=== PATIENT | female | born 1945 | race Caucasian/White ===

== ENCOUNTER 2020-05-07 07:45 | Observation (INO) | payer MEDICARE, OTHER ==
[~2020-05-07] VITALS: Ht 160 cm; Wt 54.4 kg
[~2020-05-07 07:45] MED LIST: ACIPHEX20 MG; AMLODIPINE BESYLATE; ASPIR-LOW81 MG; ATORVASTATIN; FUROSEMIDE40 MG PO; GABAPENTIN100 MG PO; KLOR-CON 1010 MEQ; LEVOTHYROXINE; LISINOPRIL; METOPROLOL TART50 MG PO; NITROGLYCERIN0.4 MG SL
[2020-05-07] MEDS ORDERED: PANTOPRAZOLE 40 MG 10ML VIAL IV STA (07:48)
[2020-05-07] MEDS ORDERED: ASPIRIN 81 MG CHEW TAB PO STA (07:56)
[2020-05-07] MEDS ORDERED: ONDANSETRON HCL INJ 2MG/ML 2ML 2 MG/ML VIAL IV STA (07:58)
--- OUTSIDE RECORDS SUMMARY | 2020-05-07 07:58 | XMS REPORT | Continuity of Care Document ---
Author Author [facility] t Organization [facility] Address [address] [place] [address] Phone Unavailable Care Team Providers Care Software Project Manager Name Role Phone Cheng JO, Blake Arzolah PCP Radha JO, Bebeto Zurita Attphys Andrzej JO, Perez Silvestre Attphys [phone] Pranav STEAM TABLE ASSOCIATE, Abdias Attphys Unavailable Leslie STEAM TABLE ASSOCIATE, Codi Attphys Unavailable Payers Payer Name Policy Type Policy Number Effective Date Expiration Date S roscoe MEDICAREMEDICARE PART A [place] B[place]xxx2008[place] 2008 00:[place]:00 [place] [employer] [employer] OF [place] [place]xxxxxxxx1-PresentCommercial xxxxxxxx 2018 00:00:00 [place] Yarsani Problems Condition Name Condition Details Condition Category Status Onset Date Resolution Date Last Treatment Date Treating Clinician Comments Source Mixed stress and urge urinary incontinence Mixed stres s and urge urinary incontinence Disease Active 2019-10-10 00:00:00 [place] [facility] History of Myocardial infarct History of Myocardial infarct Prob shanna HL7.CCDAR2 Resolved [facility] Heart disease Heart disease Problem HL7.CCDAR2 Active [facility] Generalized osteoarthritis of hand Generalized osteoarthriti s of hand Problem HL7.CCDAR2 Active [facility] Allergies, Adverse Reactions, Alerts Allergy Name Allergy Type Status Severity Reaction(s) Onset Date Inacti ve Date Treating Clinician Comments Source Sulfa (Sulfonamide Antibiotics) Propensity to adverse reactions to drug Active Rash, Other (See Comments) 2019-10-10 00:00:00 FEVER Jordan Decker Family History Family Member Diagnosis Comments Start Date Stop Date Source Mother Family history of Heart disease [facility] Sister Family history of Rheumatoid arthritis [facility] Sister Family history of Arthritis [facility] Natural father No Known Problems Mi Decker Natural mother Heart disease Jordan Decker Social History Social Habit Start Date Stop Date Quantity Comments Source Sex Assigned At Mi Decker Alcohol intake 2019-10-10 00:00:00 2019-10-10 00:00:00 Current drinker of alcohol (finding) Jordan Decker Alcohol Comment 2019-07-22 00:00:00 2019-07-22 00:00:00 social Jordan Decker Smoking Status Start Date Stop Date Source Never smoker Jordan quinones Medications Ordered Medication Name Filled Medication Name Start Date Stop Da te Current Medication? Ordering Clinician Indication Dosage Frequency Signature (SIG) Comments Components Source RABEprazole (ACIPHEX) 20 mg EC tablet 2019-11-18 08:01:33 Y es 20mg QD Take 20 mg by mouth daily. Jordan pro traMADol (ULTRAM) 50 mg tablet 2019-09-25 00:00:00 6 23:59:00 No acute pain 50mg Q6H Take 1 tablet (50 mg total) by mouth every 6 (six) hours as needed for moderate pain for up to 7 days .Acute Pain. Jordan Decker oxyCODone (ROXICODONE) 5 MG immediate release tablet 2019-09-25 00:00:00 2019-09-25 00:00:00 No acute pain 5mg Q4H Take 1 tablet (5 mg total) by mouth every 4 (four) hours as needed for moderate pain for up to 30 days .Acute Pain. Max Daily Amount: 30 mg Jordan quinones nitrofurantoin, macrocrystal-monohydrate, (MACROBID) 100 MG capsule 2019-07-22 00:00:00 2019-07-27 23:59:00 No 100mg Q.5D Take 1 capsule (100 mg total) by mouth 2 (two) times a day for 5 days. Anthony Decker lisinopril-hydrochlorothiazide (PRINZIDE,ZESTORETIC) 10-12.5 mg per tablet 2019-07-04 00:00:00 Yes 1{tbl} QD Take 1 tablet by m outh daily. Jordan Decker carvedilol (COREG) 12.5 MG tablet 2019-07-01 00:00:00 Yes 12.5mg Q.5D Take 12.5 mg by mouth 2 (two) times a day. Jordan Decker atorvastatin (LIPITOR) 40 MG tablet 2019-06-16 00:00:00 Yes 40mg QD Take 40 mg by mouth daily. Jordan Decker amLODIPine (NORVASC) 5 mg tablet 2019-06-16 00:00:00 Yes 5mg QD Take 5 mg by mouth daily. Jordan Decker diazePAM (VALIUM) 5 MG tablet 2019-06-05 00:00:00 Yes TAKE 1 TABLET BY MOUTH NIGHT PRIOR TO PROCEDURE AND TAKE 1 TABLET IN THE MORNING OF PROCEDURE UPON ARRIVAL Jordan Decker levothyroxine (SYNTHROID, LEVOXYL) 50 mcg tablet 2019-05-28 00:00:00 Yes TAKE 1 TABLET BY MOUTH ONCE DAILY FOR 90 DAYS Jordan Decker Lisinopril 20 MG Oral Tablet Lisinopril 20 MG Oral Tablet 00:00:00 Yes QD TAKE 1 TABLET DAILY DIRECTED. [facility] Lasix 40 MG Oral Tablet Lasix 40 MG Oral Tablet 2014-12-03 00:00:00 Yes 1 QD TAKE 1 TABLET DAILY. [facility] Aciphex 20 MG Oral Tablet Delayed Release Aciphex 20 M G Oral Tablet Delayed Release 2014-12-03 00:00:00 Yes 1 QD TAKE 1 TABLET DA PAUL. [facility] Metoprolol Succinate ER 25 MG Oral Tablet Extended Rel ease 24 Hour Metoprolol Succinate ER 25 MG Oral Tablet Extended Release 24 Hour 2014-12-03 00:00:00 Yes TAKE 1 TABLET BY MOUTH TWICE DAILY [facility] Crestor 20 MG Oral Tablet Crestor 20 MG Oral Tablet 2014-12-03 00:00:0 0 Yes 1 QD TAKE 1 TABLET DAILY. [facility] Klor-Con 10 10 MEQ Oral Tablet Extended Release Klor-C on 10 10 MEQ Oral Tablet Extended Release 2014-12-03 00:00:00 Yes TAKE 1 TABLET EVERY OTHER DAY. [facility] Vitamin C 1000 MG Oral Tablet Vitamin C 1000 MG Oral Tablet 2014 00:00:00 Yes 1 QD TAKE 1 TABLET DAILY. [facility] Biotin 5000 MCG Oral Capsule Biotin 5000 MCG Oral Capsule 2015-01-0 7 00:00:00 Yes 1 QD TAKE 1 CAPSULE DAILY. Un [facility] Aspirin 81 MG TABS Aspirin 81 MG TABS 2014-12-03 00:00:00 Yes 1 QD TAKE 1 TABLET DAILY. [facility] Voltaren 1 % Transdermal Gel Voltaren 1 % Transdermal Gel 00:00:00 Yes KATT GONZALEZ M.D. Apply 1 inch to affected area twice daily as needed for pain. [facility] Vital Signs Vital Name Observation Time Observation Value Comments Source Systolic blood pressure 2019-11-18 08:00:00 158 mm[Hg] Jordan Decker Diastolic blood pressure 2019-11-18 08:00:00 90 mm[Hg] Jordan Decker Body height 2019-11-18 08:00:00 160 cm Jordan Decker Body weight 2019-11-18 08:00:00 60.782 kg Jordan Decker BMI 2019-11-18 08:00:00 23.74 kg/m2 Jordna Decker Heart rate 2019-10-10 09:37:00 59 /min Jordan Decker Respiratory rate 2019-10-10 09:37:00 16 /min Kelly Decker Oxygen saturation in Arterial blood by Pulse oximetry 2018-11 09:37:00 98 /min Jordan Decker Body temperature 2019-10-10 09:18:00 36.61 Sweetie Hous jonny Decker Procedures Procedure Date / Time Performed Performing Clinician [id number] 2019-11-18 08:06:00 Yudith Garcia DE AN ELECTIVE ENDOTRACHEAL AIRWAY 2019-10-10 07:34:21 Nathan Mooney CYSTOSCOPY 2019-10-10 07:15:00 Yudith Garcia Sc leandro COLPORRHAPHY, COMBINED ANTEROPOSTERIOR, WITH ENTEROCEL E REPAIR 2019-10-10 07:15:00 Yudith Garcia URETHROPEXY, USING TRANSVAGINAL TAPE 2019-10-10 07:15:00 Stacy Garcia XR CHEST 2 VW 2019-09-26 11:05:00 Yudith Garcia HC COMPLETE BLD COUNT W/AUTO DIFF 2019-09-26 10:40:00 King Garcia BASIC METABOLIC PANEL 2019-09-26 10:40:00 [place], Yudith Mendoza ton Yarsani ESTIMATED GFR 2019-09-26 10:40:00 [place] [facility] ECG 12-LEAD 2019-09-26 10:39:44 Radha, Yudith [facility] POC URINALYSIS DIPSTICK 2019-09-25 10:58:00 RadhaYudith URODYNAMICS 2019-09-25 00:00:00 RadhaYudith Sc thodist POC URINALYSIS DIPSTICK 2019-07-22 13:59:00 [place] URINE CULTURE 2019-07-22 13:58:00 [place] [facility] [id number] 2019-07-22 13:58:00 [place] [facility] History of Back Surgery [facility] Plan of Care Planned Activity Planned Date Details Comments Source Future Scheduled Test 2020-06-27 00:00:00 INFLUENZA VACCINE [code = INFLUENZA VACCINE] [facility] Future Scheduled Test 2008 00:00:00 65+ PNEUMOCOCCAL V ACCINE (1 of 2 - PCV13) [code = 65+ PNEUMOCOCCAL VACCINE (1 of 2 - PCV13)] [facility] Future Scheduled Test 1993 00:00:00 COLONOSCOPY SCREEN ING [code = COLONOSCOPY SCREENING] [facility] Scheduled Test 1993 00:00:00 SHINGLES VACCINES (#1) [code = SHINGLES VACCINES (#1)] [facility] Results Test Description Test Time Test Comments Results Result Comments Source POC BLADDER SCAN/PVR 2019-11-18 08:06:00 Test Item Total volume, urine (test code = 2338) 0 ml Ortega [id number] 07:34:21Era Mooney 10/10/2019 7:35 AMAirwayDate/Time: 10/10/2019 7:23 AMPerformed by: Era MooneyeAuthorized by: Konrad Donnelly MD Location: ORUrgency: ElectiveDifficult Airway: No Anesthesiologist: Konrad Donnelly MDResident/AIRCRAFT INSTRUMENT ENGINEER/AA: Era MooneyePerformed by: resident/AIRCRAFT INSTRUMENT ENGINEER/AAPreoxygenated with 100% O2: Yes Mask Ventilation: Easy mask (e asy BMV w/ OA)Final Airway Type: Endotracheal airwayFinal Endotracheal Airway: ETTCuffed: Yes Technique Used: Direct laryngoscopyDevices/Methods Used in Cynthia cement: Intubating styletInsertion Site: OralBlade Type: MacintoshLaryngoscop e Blade/Videolaryngoscope Blade Size: 3ETT Size (mm): 7.0Cuff at minimum occlu josef pressure: Yes Measured from: LipsETT to Lips (cm): 21Placement Verified by: CO2 detection, direct visualization and equal breath sounds Laryngoscopic v iew: Grade I - full view of glottisRapid Sequence Induction (RSI): No Modified RSI: No Number of Attempts at Approach: 1[facility] metabolic [id number] 12:08:48* Test Item Value Reference Range Interpretation Comments Sodium (test code = 2951-2) 145 135- 148 mEq/L Potassium (test code = 2823-3) 4.3 3.5- 5.0 mEq/L Chloride (test code = 2075-0) 104 98- 112 mEq/L CO2 (test code = 8-9) 28 24- 31 mEq/L Anion gap (test code = 11769-7) 13@ANIO 7- 15 mEq/L BUN (test code = 3094-0) 19 mg/dL 8-23 Creatinine (test code = 2160-0) 0.90 mg/dL 0.5-0.9 Glucose (test code = 2345-7) 107 mg/dL 65-99 H Calcium (test code = 47180-7) 9.4 mg/dL 8.8-10.2 Lab Interpretation (test code = 98129-4) Abnormal [facility] Methodist[facility]ated [id number] 12:08:48* Test Item Value Reference Range Interpretation Comments Estimated GFR (test code = 5488) 62 mL/min/1.73 m2 Catergory Units InterpretationG1 >=90 Normal or highG2 60-89 Mildly brnccmaehC4f 45-59 Mildly to moderately nxjmrxbnmX7g 30-44 Moderately to severely decreasedG4 15-29 Severely decreasedG5 <15 Kidney failureThe eGFR was calculated using the Chronic Kidney Disease Epidemiology Collaboration (CKD-EPI) equation. Interpretation is based on recommendations of the National Kidney Foundation-Kidney Disease Outcomes Quality Initiative (NKF-KDOQI) published in 2014. [facility] Methodist[facility]G 12 [id number] 11:54:05* Test Item Value Reference Range Interpretation Comments Ventricular rate (test code = 253) 64 Atrial rate (test code = 255) 64 DE interval (test code = 266) 158 QRSD interval (test code = 260) 82 QT interval (test code = 264) 426 QTC interval (test code = 265) 439 P axis 1 (test code = 267) 32 QRS axis 1 (test code = 268) 36 T wave axis (test code = 270) 43 EKG impression (test code = 273) Normal sinus rhythm-N ormal ECG-No previous ECGs available- [facility] with platelet and [id number] 11:53:48* Test Item Value Reference Range Interpretation Comments WBC (test code = 65161-6) 6.06 4.50- 11.00 k/uL RBC (test code = 19607-3) 4.21 m/uL 4.2-5.5 HGB (test code = 718-7) 11.9 g/dL 12-16 L HCT (test code = 4544-3) 37.8 % 37-47 MCV (test code = 787-2) 89.8 fL 82-100 MCH (test code = 785-6) 28.3 pg 27-34 MCHC (test code = 786-4) 31.5 g/dL 31-37 RDW - SD (test code = 39130-7) 47.0 fL 37-55 MPV (test code = 53838-8) 10.9 fL 8.8-13.2 Platelet count (test code = 87201-0) 199 150- 400 k/uL Nucleated RBC (test code = 39886-5) 0.00 /100 WBC Neutrophils (test code = 10637-8) 59.4 % 39-69 Lymphocytes (test code = 93163-2) 29.5 % 25-45 Monocytes (test code = 14417-2) 9.2 % 0-10 Eosinophils (test code = 04492-9) 0.8 % 0-5 Basophils (test code = 10353-6) 0.8 % 0-1 Lab Interpretation (test code = 17318-3) Abnormal [facility] Chest 2 [id number] 11:09:02Hm Interface, Radiology Results Incoming - 09/26/2019 11:12 AM CDTTWO VIEW CHEST, 09/26/2019Clinical history: Preoperative testingTechnique: PA and lateral views chest.Comparison: NoneDISCUSSION:The lungs are clear and symmetrically inflated. No pleural effusions. Cardiac size and mediastinal contour are normal. Pulmonary vasculature is normal. The skeleton is grossly intact. Mild degenerative disc disease. Mild abdominal aortic atherosclerosis.IMPRESSION:No acute abnormality. [facility] urinalysis [id number] 10:58:00* Test Item Value Reference Range Interpretation Comments Color urine, POC (test code = 7008580) Yellow Clarity urine, POC (test code = 9562987) Clear Glucose urine, POC (test code = 4212149) Negative Negative Bilirubin urine, POC (test code = 1980990) Negative Negative Ketones urine, POC (test code = 2360493) Negative Negative Specific gravity urine, POC (test code = 8374543) </=1.005 1.00 5-1.030 Blood urine, POC (test code = 0226258) Negative Negative pH urine, POC (test code = 9677166) 5.0 5.0, 5.5, 6. 0, 6.5, 7.0, 7.5, 8.0, 8.5 Protein urine, POC (test code = 6390533) Negative Negative Urobilinogen urine, POC (test code = 6831538) <2.0 <2.0 Nitrite urine, POC (test code = 6326562) Negative Negative Leukocyte esterase urine, POC (test code = 3921425) Negative Ne gative [facility]
--- OUTSIDE RECORDS SUMMARY | 2020-05-07 07:58 | XMS REPORT | Summary of Care ---
Author Author [facility] Address [address] [place] [address] Phone Unavailable Care Team Providers Care Vending Service Technician Name Role Phone KATT GONZALEZ M.D. Unavailable Unavailable Unavailable Unavailable Functional Status Name Dates Details Functional status health issues are not documented Status: Name Dates Details Cognitive status health issues are not d ocumented Status: Problems Name Dates Details Heart disease (429.9, I51.9) Status: Active Generalized osteoarthritis of hand (715. 04, M15.9) Status: Active Medications Name Dates Details Lisinopril 20 MG Oral Tablet TAKE 1 TABLET DAILY DIRECTED. * Start : 03-Dec-2014 Active Lasix 40 MG Oral Tablet TAKE 1 TABLET DAILY. * Refills: 0 * Start : 03-Dec-2014 Active Aciphex 20 MG Oral Tablet Delayed Release TAKE 1 TABLET DAILY. * Refills: 0 * Start : 03-Dec-2014 Active Metoprolol Succinate ER 25 MG Oral Tablet Extended Release 24 Hour TAKE 1 TABLET BY MOUTH TWICE DAILY * Quantity: 60 Refills: 1 * Start : 03-Dec-2014 Active Crestor 20 MG Oral Tablet TAKE 1 TABLET DAILY. * Refills: 0 * Start : 03-Dec-2014 Active Klor-Con 10 10 MEQ Oral Tablet Extended Release TAKE 1 TABLET EVERY OTHER DAY. * Refills: 0 * Start : 03-Dec-2014 Active Vitamin C 1000 MG Oral Tablet TAKE 1 TABLET DAILY. * Refills: 0 * Start : 03-Dec-2014 Active Biotin 5000 MCG Oral Capsule TAKE 1 CAPSULE DAILY. * Refills: 0 * Start : 03-Dec-2014 Active Aspirin 81 MG TABS TAKE 1 TABLET DAILY. * Refills: 0 * Start : 03-Dec-2014 Active Voltaren 1 % Transdermal Gel Apply 1 inch to affected area twice daily as needed for pain. * Quantity: 1 Refills: 5 KATT GONZALEZ M.D. * Start : 03-Dec-2014 Active 100 GM Tube (3 Tubes) Allergies and Adverse Reactions Name Dates Details Sulfa Drugs Cross Reactors (Allergy) Status: Active Past Medical History Name Dates Details History of Myocardial infarct (410.90, I 21.9) Status: Resolved Procedures Procedure Dates Details History of Back Surgery Completed Immunization Name Dates Details Immunizations not documented Family History Name Dates Details Family history of Heart disease (429.9, I51.9) Status: Active Name Dates Details Family history of Rheumatoid arthritis ( 714.0, M06.9) Status: Active Family history of Arthritis (716.90, M19 .90) Status: Active Social History Name Dates Details - Status: Name Dates Details Never smoker Vital Signs Date Test Result Details No Known Vitals to report Results Date Description Value Details Results not documented Plan of Care Name Dates Details Planned Observations Planned Goals not documented Instructions Name Dates Details Instructions not documented Encounters No Encounter data documented Encounter Diagnosis: Problem not documented On: 16-May-2018
--- OUTSIDE RECORDS SUMMARY | 2020-05-07 07:58 | XMS REPORT | Clinical Summary ---
Author Author [facility] Address Unknown Phone Unavailable Care Team Providers Care Safety Administrator Name Role Phone Julio Anand MD PCP Allergies Comments Active Allergy Reactions Severity Noted Date FEVER Sulfa (Sulfonamide Rash, Other Low 10/10/2019 Antibiotics) (See Comments) Medications End Date Status Medication Sig Dispensed Refills Start Date Active lisinopril-hydrochlorothi Take 1 tablet 3 azide by mouth 9 (PRINZIDE,ZESTORETIC) daily. 10-12.5 mg per tablet Active levothyroxine (SYNTHROID, TAKE 1 TABLET 3 LEVOXYL) 50 mcg tablet BY MOUTH ONCE 9 DAILY FOR 90 DAYS Active diazePAM (VALIUM) 5 MG TAKE 1 TABLET 0 06/05/ 01 tablet BY MOUTH 9 NIGHT PRIOR TO PROCEDURE AND TAKE 1 TABLET IN THE MORNING OF PROCEDURE UPON ARRIVAL Active carvedilol (COREG) 12.5 Take 12.5 mg 3 MG tablet by mouth 2 9 (two) times a day. Active atorvastatin (LIPITOR) 40 Take 40 mg by 3 05/28 MG tablet mouth daily. 9 Active amLODIPine (NORVASC) 5 mg Take 5 mg by 3 05/28 tablet mouth daily. 9 Active RABEprazole (ACIPHEX) 20 Take 20 mg by 0 mg EC tablet mouth daily. 07/27/2019 nitrofurantoin, Take 1 10 capsule 0 macrocrystal-monohydrate, capsule (100 9 (MACROBID) 100 MG capsule mg total) by mouth 2 (two) times a day for 5 days. 09/25/2019 Discontinued (Availability) oxyCODone (ROXICODONE) 5 Take 1 tablet 10 tablet 0 MG immediate release (5 mg total) 9 tabletIndications: acute by mouth pain every 4 (four) hours as needed for moderate pain for up to 30 days .Acute Pain. Max Daily Amount: 30 mg 10/02/2019 traMADol (ULTRAM) 50 mg Take 1 tablet 20 tablet 0 tabletIndications: acute (50 mg total) 9 pain by mouth every 6 (six) hours as needed for moderate pain for up to 7 days .Acute Pain. Active Problems Problem Noted Date Mixed stress and urge urinary incontinence 9 Encounters Care Team Description Date Type Specialty Yudith Garcia MD Post-operative state (Primary Dx) 11/18/2019 Office Visit Urogynecology Konrad Donnelly MD 10/10/2019 Anesthesia General Surgery Event Yudith Garcia MD CYSTOSCOPY 10/10/2019 Surgery General Surgery Yudith Garcia MD 10/10/2019 [facility] General Surgery Encounter Yudith Garcia MD 09/26/2019 Hospital Radiology Encounter Yudith Garcia MD Preop testing (Primary Dx) 09/26/2019 Pre-Admit Pre-Admission Testi ng Testing Appointment Yudith Garcia MD Mixed stress and urge urinary incontinen ce (Primary Dx); Bladder prolapse, female, acquired; Postmenopausal atrophic vaginitis 09/25/2019 Procedure visit Urogynecology Abdias Rock LVN 09/25/2019 Refill Urogynecology Abdias [facility] Post-op pain (Primary Dx) 09/25/2019 Orders Only Urogynecology Abdias [facility] LVN 09/25/2019 Refill Urogynecology Yudith Garcia MD 09/25/2019 Telephone Gynecologic Oncolog y Yudith Garcia MD 08/28/2019 Telephone Obstetrics and Gyne cology Codi Nelson LVN 07/23/2019 Telephone Urogynecology Yudith Garcia MD Bladder prolapse, female, acquired (Prim jen Dx); Mixed stress and urge urinary incontinence; Postmenopausal atrophic vaginitis; Incontinence of feces, unspecified fecal incontinence type; Acute cystitis without hematuria 07/22/2019 Office Visit Urogynecology after 05/07/2019 Family History Medical History Relation Name Comments No Known Problems Father Heart disease Mother Relation Name Status Comments Father (Age 37) Mother (Age 43) Social History Date Tobacco Use Types Packs/Day Years Used Never Smoker Smokeless Tobacco: Never Used Drinks/Week oz/Week Comments Alcohol Use social Yes Sex Assigned at Date Recorded Not on file Industry Job Start Date Occupation Not on file Not on file Not on file Travel End Travel History Travel Start No recent travel history available. Last Filed Vital Signs Reading Time Taken Comments Vital Sign 158/90 11/18/2019 8:00 AM SENIOR ACTUARIAL ANALYST Blood Pressure 59 10/10/2019 9:37 AM SENIOR ACTUARIAL ANALYST Pulse 36.6 C (97.9 F) 10/10/2019 9:18 AM SENIOR ACTUARIAL ANALYST Temperature 16 10/10/2019 9:37 AM SENIOR ACTUARIAL ANALYST Respiratory Rate 98% 10/10/2019 9:37 AM SENIOR ACTUARIAL ANALYST Oxygen Saturation - - Inhaled Oxygen Concentration 60.8 kg (134 lb) 11/18/2019 8:00 AM SENIOR ACTUARIAL ANALYST Weight 160 cm (5' 3") 11/18/2019 8:00 AM SENIOR ACTUARIAL ANALYST Height 23.74 11/18/2019 8:00 AM SENIOR ACTUARIAL ANALYST Body Mass Index Plan of Treatment Health Maintenance Due Date Last Done Comments COLONOSCOPY SCREENING 1993 SHINGLES VACCINES (#1) 1993 65+ PNEUMOCOCCAL VACCINE 2008 (1 of 2 - PCV13) INFLUENZA VACCINE 06/27/2020 Implants Device Identifier Shelf Expiration Date Model / Serial / L ot Implanted Type Area Manufactur er 02/25/2020 TVTRL / / [id number] System Contnc Rtrpbc Gynecare Tvt Urological N/A: Bladder GYNECARE Exact - [id number] Implants Implanted: Qty: 1 on 10/10/2019 by or Yudith Quinn MD at [facility] Procedures Comments Procedure Name Priority Date/Time Associated Diag nosis [id number] Routine 11/18/2019 Post-operative state 8:06 AM SENIOR ACTUARIAL ANALYST VA AN ELECTIVE Routine 10/10/2019 ENDOTRACHEAL AIRWAY 7:34 AM SENIOR ACTUARIAL ANALYST URETHROPEXY, USING 10/10/2019 CYSTOCELE, STRESS URINARY TRANSVAGINAL TAPE 7:15 AM SENIOR ACTUARIAL ANALYST INCONTINENCE N81.11, N39.3 COLPORRHAPHY, COMBINED 10/10/2019 CYSTOCELE, STR ESS URINARY ANTEROPOSTERIOR, WITH 7:15 AM SENIOR ACTUARIAL ANALYST INCONTINENCE ENTEROCELE REPAIR N81.11, N39.3 CYSTOSCOPY 10/10/2019 CYSTOCELE, STRESS U RINARY 7:15 AM SENIOR ACTUARIAL ANALYST INCONTINENCE N81.11, N39.3 XR CHEST 2 VW Routine 09/26/2019 Preop testing 11:05 AM CDT ESTIMATED GFR Routine 09/26/2019 10:40 AM CDT BASIC METABOLIC PANEL Routine 09/26/2019 Preop te sting 10:40 AM CDT HC COMPLETE BLD COUNT Routine 09/26/2019 Preop te sting W/AUTO DIFF 10:40 AM CDT ECG 12-LEAD Routine 09/26/2019 Preop testing 10:39 AM CDT POC URINALYSIS DIPSTICK Routine 09/25/2019 Mixed stress and urge 10:58 AM CDT urinary incontinence Bladder prolapse, female, acquired URODYNAMICS Routine 09/25/2019 POC URINALYSIS DIPSTICK Routine 07/22/2019 Bladde r prolapse, female, 1:59 PM CDT acquired Mixed stress and urge urinary incontinence [id number] Routine 07/22/2019 Bladder prolaps e, female, 1:58 PM CDT acquired Mixed stress and urge urinary incontinence URINE CULTURE Routine 07/22/2019 Bladder prolaps e, female, 1:58 PM CDT acquired Mixed stress and urge urinary incontinence after 05/07/2019 Results * POC BLADDER SCAN/PVR (11/18/2019 8:06 AM SENIOR ACTUARIAL ANALYST) Only the most recent of 2 results within the time period is included. Total volume, 0 ml urine Specimen Urine * Airway (10/10/2019 7:34 AM SENIOR ACTUARIAL ANALYST) Narrative Performed At [facility] 10/10/2019 7:35 AM Airway Date/Time: 10/10/2019 7:23 AM Performed by: [facility] Authorized by: Konrad Donnelly MD Location: OR Urgency: Elective Difficult Airway: No Anesthesiologist: Mark Donnelly MD Resident/SECRETARY TO THE VICE PRESIDENT/AA: [facility] Performed by: resident/SECRETARY TO THE VICE PRESIDENT/AA Preoxygenated with 100% O2: Yes Mask Ventilation: Easy mask (easy BMV w/ OA) Final Airway Type: Endotracheal airwa y Final Endotracheal Airway: ETT Cuffed: Yes Technique Used: Direct laryngoscopy Devices/Methods Used in Placement: In tubating stylet Insertion Site: Oral Blade Type: Niall Laryngoscope Blade/Videolaryngoscope Bl olivia Size: 3 ETT Size (mm): 7.0 Cuff at minimum occlusion pressure: Yes Measured from: Lips ETT to Lips (cm): 21 Placement Verified by: CO2 detection, d irect visualization and equal breath sounds Laryngoscopic view: Grade I - full vi ew of glottis Rapid Sequence Induction (RSI): No Modified RSI: No Number of Attempts at Approach: 1 * XR Chest 2 Vw (09/26/2019 11:05 AM CDT) Specimen Narrative Performed At TWO VIEW CHEST, 09/26/2019 [facility] Clinical history: Preoperative testin g Technique: PA and lateral views chest. Comparison: None DISCUSSION: The lungs are clear and symmetrically i nflated. No pleural effusions. Cardiac size and mediastinal contour are normal . Pulmonary vasculature is normal. The skeleton is grossly intact. Mild degene rative disc disease. Mild abdominal aortic atherosclerosis. IMPRESSION: No acute abnormality. Procedure Note Interface, Radiology Results Incoming - 09/26/2019 11:12 AM CDT TWO VIEW CHEST, 09/26/2019 Clinical history: Preoperative testing Technique: PA and lateral views chest. Comparison: None DISCUSSION: The lungs are clear and symmetrically inflated. No pleural effusions. Cardiac size and mediastinal contour are normal. Pulmonary vasculature is normal. The skeleton is grossly intact. Mild degenerative disc disease. Mild abdominal aortic atherosclerosis. IMPRESSION: No acute abnormality. Performing Organization Address City/State/Zipcode Ph one Number [facility] [address] [place] [address] * Estimated GFR (09/26/2019 10:40 AM CDT) [facility] Estimated GFR 62 mL/min/1.73 m2 [place] Comment: [facility] Interpretation G1 >=90 Normal or high G2 60-89 Mildly decreased G3a 45-59 Mildly to moderately decreased G3b 30-44 Moderately to severely decreased G4 15-29 Severely decreased G5 <15 Kidney failure The eGFR was calculated using the Chronic Kidney Disease Epidemiology Collaboration (CKD-EPI) equation. Interpretation is based on recommendations of the National Kidney Foundation-Kidney Disease Outcomes Quality Initiative (NKF-KDOQI) published in 2014. Specimen Plasma specimen Performing Organization Address City/[facility]/[place] Ph one Number [facility] DEPARTMENT OF [id number] [place] [address] [place], [place] [address] PATHOLOGY AND GENOMIC MEDICINE [facility] [id number] [place] [address] [place] [address] [facility] * CBC with platelet and differential (09/26/2019 10:40 AM CDT) WBC 6.06 4.50 - 11.00 k/uL [facility] RBC 4.21 4.20 - 5.50 m/uL [facility] HGB 11.9 (L) 12.0 - 16.0 g/dL [facility] HCT 37.8 37.0 - 47.0 % [facility] MCV 89.8 82.0 - 100.0 fL [facility] MCH 28.3 27.0 - 34.0 pg [facility] MCHC 31.5 31.0 - 37.0 g/dL [facility] RDW - SD 47.0 37.0 - 55.0 fL [facility] MPV 10.9 8.8 - 13.2 fL [facility] Platelet count 199 150 - 400 k/uL [facility] Nucleated RBC 0.00 /100 WBC [facility] Neutrophils 59.4 39.0 - 69.0 % [facility] Lymphocytes 29.5 25.0 - 45.0 % [facility] Monocytes 9.2 0.0 - 10.0 % [facility] Eosinophils 0.8 0.0 - 5.0 % [facility] Basophils 0.8 0.0 - 1.0 % [facility] Specimen Blood Performing Organization Address City/[facility] Ph one Number [facility] [place] [place] [id number] [place] [address] [place], [place] [address] PATHOLOGY AND GENOMIC MEDICINE [facility] [id number] [place] [address] * Basic metabolic panel (09/26/2019 10:40 AM CDT) Sodium 145 135 - 148 mEq/L [facility] Potassium 4.3 3.5 - 5.0 mEq/L [facility] Chloride 104 98 - 112 mEq/L [facility] CO2 28 24 - 31 mEq/L [facility] Anion gap 13@ANIO 7 - 15 mEq/L [facility] BUN 19 8 - 23 mg/dL [facility] Creatinine 0.90 0.50 - 0.90 mg/dL [facility] Glucose 107 (H) 65 - 99 mg/dL [facility] Calcium 9.4 8.8 - 10.2 mg/dL [facility] Specimen Plasma specimen Performing Organization Address City/[facility] Ph one Number [facility] DEPARTMENT [place] [id number] [place] [address] [place] [phone] PATHOLOGY AND GENOMIC MEDICINE [facility] [id number] [place] [address] [place] [phone] [facility] * ECG 12 lead (09/26/2019 10:39 AM CDT) Ventricular 64 [facility] rate Atrial rate 64 [facility] VA interval 158 [facility] QRSD interval 82 [facility] QT interval 426 [facility] QTC interval 439 [facility] P axis 1 32 [facility] QRS axis 1 36 [facility] T wave axis 43 [facility] EKG impression Normal sinus rhythm-Normal [facility] MUSE ECG-No previous ECGs available- Specimen Narrative Performed At This result has an attachment that is n ot available. Performing Organization Address City/[facility] Ph one Number [facility] [address] [place] [address] * POC urinalysis dipstick (09/25/2019 10:58 AM CDT) Only the most recent of 2 results within the time period is included. Color urine, Yellow POC Clarity urine, Clear POC Glucose urine, Negative Negative POC Bilirubin Negative Negative urine, POC Ketones urine, Negative Negative POC Specific </=1.005 1.005 - 1.030 gravity urine, POC Blood urine, Negative Negative POC pH urine, POC 5.0 5.0, 5.5, 6.0, 6.5, 7.0, 7.5, 8.0, 8.5 Protein urine, Negative Negative POC Urobilinogen <2.0 <2.0 urine, POC Nitrite urine, Negative Negative POC Leukocyte Negative Negative esterase urine, POC Specimen Urine * Urodynamics (09/25/2019) Narrative Performed At This result has an attachment that is n ot available. * Urine culture (07/22/2019 1:58 PM CDT) Urine culture Escherichia coli [facility] Greater than 100,000 colony forming units per mL (A) Comment: Cefazolin <=4 ug/mL Cefazolin with an HENRY <=16 predicts susceptibility to the oral agents cefaclor, cefdinir, cefpodoxime, cefprozil, cefuroxime, cephalexin, and loracarbef when used for therapy of uncomplicated urinary tract infections due to E. coli, Klebsiella pneumoniae, and Proteus mirabilis. Specimen Urine Narrative Performed At Performed at: [facility] [address] [id number] [employer] Supervisor: Jonas Childs MD, Phone: [phone] Antibiotic Method Susceptibility Organism Amoxicillin/Clavulanate S ug/mL: Susceptible Escherichia coli Ampicillin S ug/mL: Susceptible Escherichia coli Cefepime S ug/mL: Susceptible Escherichia coli Ceftriaxone S ug/mL: Susceptible Escherichia coli Cefuroxime S ug/mL: Susceptible Escherichia coli Ciprofloxacin S ug/mL: Susceptible Escherichia coli Ertapenem S ug/mL: Susceptible Escherichia coli Gentamicin S ug/mL: Susceptible Escherichia coli Imipenem S ug/mL: Susceptible Escherichia coli Levofloxacin S ug/mL: Susceptible Escherichia coli Meropenem S ug/mL: Susceptible Escherichia coli Nitrofurantoin S ug/mL: Susceptible Escherichia coli Piperacillin/Tazobactam S ug/mL: Susceptible Escherichia coli Tetracycline S ug/mL: Susceptible Escherichia coli Tobramycin S ug/mL: Susceptible Escherichia coli Trimethoprim/Sulfamethoxazole S ug/mL: Susceptible Escherichia coli Comment: Performed at: [address] [place] [id number] Human Resources Supervisor: Jonas Childs MD, Phone: [phone] Performing Organization Address City/State/Zipcode Ph one Number [facility] after 05/07/2019 Insurance Type Payer Benefit Subscriber ID Effective Phone Address Plan / Dates Group Medicare MEDICARE MEDICARE xxxxxxxxxxx 2008-P JORDAN, PART A AND resent [place] B Commercial [employer] [place] OF xxxxxxxx 2018-P KELVIN schwab Advance Directives For more information, please contact: [phone] Patient Nc Machinist Explanation Type Date Recorded Advance Directives, 09/26/2019 9:37 AM Living Will and Medical Power of Delinquent Notice Machine Operator
[2020-05-07] MEDS ORDERED: NITROGLYCERIN 2% OINT 1 GM PKT TOP ONE (08:00)
[2020-05-07] MEDS ORDERED: LISINOPRIL-HCT1 EAC2 PO (08:00)
[2020-05-07] MEDS ORDERED: VITAMIN C500 M6 PO (08:00)
[2020-05-07] MEDS ORDERED: AMLODIPINE BESYL5 MG PO (08:00)
[2020-05-07] MEDS ORDERED: CARVEDILOL12.5 MG PO (08:00)
[2020-05-07] MEDS ORDERED: LEVOTHYROXINE50 MCG PO (08:00)
[2020-05-07] MEDS ORDERED: SODIUM CHLORIDE 0.9% 500ML 500 ML IV ONE (08:00)
[2020-05-07] MEDS ORDERED: BIOTIN5 M1 PO (08:00)
[2020-05-07] MEDS ORDERED: ATORVASTATIN CA20 MG PO (08:00)
[2020-05-07 08:28] LABS: BASOPHILS % 0.5 % (0.0-1.0); EOSINOPHILS % 0.4 % (0.0-6.0); HEMATOCRIT 36.1 % (34.2-44.1); HEMOGLOBIN 11.6 g/dL (12.0-16.0); LYMPHOCYTES # (AUTO) 1.3 (1.0-3.2); LYMPHOCYTES % 15.9 % (18.0-39.1); MEAN CORPUSCULAR HEMOGLOBIN 28.9 pg (28-32); MEAN CORPUSCULAR HGB CONC 32.1 g/dL (31-35); MONOCYTES # (AUTO) 0.5 (0.2-0.8); MONOCYTES % 6.9 % (4.4-11.3); NEUTROPHILS % 75.9 % (38.7-80.0); PLATELET COUNT 173 x10e3/uL (140-360); RED BLOOD COUNT 4.01 x10e6/uL (3.6-5.1); RED CELL DISTRIBUTION WIDTH 14.8 % (11.7-14.4)
[2020-05-07] MEDS ORDERED: MAGNESIUM/ALUMINUM/SIMETHICONE 30 ML UDC PO ONE (08:45)
[2020-05-07] MEDS ORDERED: BELLADONNA ALK/PHENOBARBITAL 5 ML UDC PO ONE (08:45)
[2020-05-07] MEDS ORDERED: LIDOCAINE VISC 2% SOLN 15 ML UDC PO ONE (08:45)
[2020-05-07 08:52] LABS: ALANINE AMINOTRANSFERASE 60 IU/L (0-55); ALBUMIN 4.2 g/dL (3.5-5.0); ALBUMIN/GLOBULIN RATIO 1.5 (0.8-2.0); ALKALINE PHOSPHATASE 144 IU/L (40-150); ANION GAP 14.8 mmol/L (8-16); BLOOD UREA NITROGEN 12 mg/dL (7-26); BUN/CREATININE RATIO 15 (6-25); CALCIUM 10.1 mg/dL (8.4-10.2); CARBON DIOXIDE 28 mmol/L (22-29); CHLORIDE 101 mmol/L (98-107); CREATINE KINASE 85 IU/L (29-168); CREATININE, SERUM 0.82 mg/dL (0.57-1.11); EST GLOMERULAR FILTRATION RATE > 60 ML/MIN (60-); GLUCOSE 122 mg/dL (74-118); MAGNESIUM 1.9 MG/DL (1.3-2.1); POTASSIUM 3.8 mmol/L (3.5-5.1); SODIUM 140 mmol/L (136-145)
[2020-05-07 09:07] LABS: INR 0.88; PARTIAL THROMBOPLASTIN TIME 35.7 seconds (23.8-35.5); PROTHROMBIN TIME 12.4 seconds (11.9-14.5)
--- NOTE | 2020-05-07 09:08 | Diagnostic Imaging Report ---
EXAMINATION: CHEST SINGLE (PORTABLE) INDICATION: Chest pain COMPARISON: None FINDINGS: LINES/TUBES:EKG leads overlie the chest. LUNGS:The lungs are well-inflated. No focal consolidation or pulmonary edema. PLEURA:No pleural effusion or pneumothorax. MEDIASTINUM:The cardiomediastinal silhouette appears normal in size and shape. Atherosclerotic calcifications of the thoracic aorta. BONES/SOFT TISSUES:No acute osseous injury. ABDOMEN:No free air under the diaphragm. IMPRESSION: No focal pneumonia or pulmonary edema. Signed by: Rashad Armstrong MD on 05/07/2020 9:04 AM
[2020-05-07] MEDS ORDERED: NITROGLYCERIN 0.4 MG SUBL SL PRN (09:15)
[2020-05-07] MEDS ORDERED: MORPHINE SULFATE 2 MG/ML SYR 1ML IV PRN (09:15)
[2020-05-07] MEDS ORDERED: ONDANSETRON HCL INJ 2MG/ML 2ML 2 MG/ML VIAL IV PRN (09:15)
[2020-05-07] MEDS: FAMOTIDINE 20 MG/2 ML VIAL IV SCH ×2 (09:32→21:45)
--- NOTE | 2020-05-07 09:34 | Emergency Department Note ---
History of Present Illnes History of Present Illness Chief Complaint: Chest Pain History of Present Illness This is a 74 year old female PATIENT IN FROM HOME WITH COMPLAINT OF EPIGASTRIC PAIN AND NAUSEA SINCE 0500; STATES SHE HAS A HISTORY OF MT AND ALVAREZ'S ESOPHAGUS; RATES PAIN 7/10 AND CONSTANT. PATIENT APPEARS IN NO DISTRESS. 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 Onset (how long ago): hour(s) (3) Location: [facility]/LOWER MID CHECT Quality: "HURTING" Radiation: Reports non-radiation Severity: severe (8/10) Onset quality: sudden (WOKE UP WITH PAIN) Timing of current episode: constant Progression: unchanged Chronicity: new Context: Denies recent illness Relieving factors: none Exacerbating factors: none Associated symptoms: Reports diaphoresis, Reports nausea/vomiting (NAUSEA, NO VOMITING), Reports shortness of breath (MILD) Treatments prior to arrival: none Past Medical/Family History Physician Review I have reviewed the patient's past medical and family history. Any updates have been documented here. Past Medical History Recent Fever: No Clinical Suspicion of Infectio: No New/Unexplained Change in Ment: No Past Medical History: Hypertension, MT, Hypothyroidism, Hyperlipedemia Other Medical History: BARRETTS ESOPHAGUS NEUROPATHY Past Surgical History: Hysterectomy, T&A, PCI, Back Surgery Other Surgery: BLADDER SUSPENSION X 3 HEART CATH WITH STENTS Social History Smoking Cessation: Never Smoker Counseling Performed: No Alcohol Use: Occasional Any Illegal Drug Use: No TB Exposure/Symptoms: No Physically hurt or threatened: No Family History Family history of heart diseas: No Other Last Tetanus: UNKNOWN Any Pre-Existing Lines (PICC,: No Is patient up to date on immun: Yes Last Flu: UTD Last Pneumovax: UTD Review of Systems Review of Systems Constitutional: Reports as per HPI, Reports diaphoresis EENTM: Reports no symptoms Cardiovascular: Reports as per HPI, Reports chest pain Respiratory: Reports no symptoms Gastrointestinal: Reports no symptoms Genitourinary: Reports no symptoms Musculoskeletal: Reports no symptoms Integumentary: Reports no symptoms Neurological: Reports no symptoms Psychological: Reports no symptoms Endocrine: Reports no symptoms Hematological/Lymphatic: Reports no symptoms Physical Exam Related Data Allergies: Coded Allergies: Sulfa (Sulfonamide Antibiotics) (Verified Allergy, Mild, FEVER AND RASH, 05/07/20) Triage Vital Signs Vital Signs Date Time Temp Pulse Resp B/P (MAP) Pulse Ox O2 Delivery O2 Flow Rate FiO2 05/07/20 07:46 97.5 50 18 196/122 99 Physical Exam CONSTITUTIONAL Constitutional: Reports well-developed, Reports well-nourished HENT HENT: Reports normocephalic, Reports atraumatic, Reports oropharynx clear/moist, Reports nose normal HENT L/R: Reports left ext ear normal, Reports right ext ear normal EYES Eyes: Reports PERRL, Reports conjunctivae normal NECK Neck: Reports ROM normal PULMONARY Pulmonary: Reports effort normal, Reports breath sounds normal CARDIOVASCULAR Cardiovascular: Reports regular rhythm, Reports heart sounds normal, Reports capillary refill normal, Reports normal rate, Reports murmur (/ SYS MURMUR) GASTROINTESTINAL Abdominal: Reports soft, Reports nontender, Reports bowel sounds normal; Denies tender GENITOURINARY Genitourinary: Reports exam deferred SKIN Skin: Reports warm, Reports dry MUSCULOSKELETAL Musculoskeletal: Reports ROM normal NEUROLOGICAL Neurological: Reports alert, Reports oriented x 3, Reports no gross motor or sensory deficits PSYCHOLOGICAL Psychological: Reports mood/affect normal, Reports judgement normal Results Laboratory Result Diagram: 05/07/20 0800 05/07/20 0800 Laboratory Laboratory Tests Test 05/07/20 08:00 White Blood Count 7.87 x10e3/uL (4.8-10.8) Red Blood Count 4.01 x10e6/uL (3.6-5.1) Hemoglobin 11.6 g/dL (12.0-16.0) Hematocrit 36.1 % (34.2-44.1) Mean Corpuscular Volume 90.0 fL (81-99) Mean Corpuscular Hemoglobin 28.9 pg (28-32) Mean Corpuscular Hemoglobin Concent 32.1 g/dL (31-35) Red Cell Distribution Width 14.8 % (11.7-14.4) Platelet Count 173 x10e3/uL (140-360) Neutrophils (%) (Auto) 75.9 % (38.7-80.0) Lymphocytes (%) (Auto) 15.9 % (18.0-39.1) Monocytes (%) (Auto) 6.9 % (4.4-11.3) Eosinophils (%) (Auto) 0.4 % (0.0-6.0) Basophils (%) (Auto) 0.5 % (0.0-1.0) Neutrophils # (Auto) 6.0 (2.1-6.9) Lymphocytes # (Auto) 1.3 (1.0-3.2) Monocytes # (Auto) 0.5 (0.2-0.8) Eosinophils # (Auto) 0.0 (0.0-0.4) Basophils # (Auto) 0.0 (0.0-0.1) Absolute Immature Granulocyte (auto 0.03 x10e3/uL (0-0.1) Prothrombin Time 12.4 seconds (11.9-14.5) Prothromb Time International Ratio 0.88 Activated Partial Thromboplast Time 35.7 seconds (23.8-35.5) Sodium Level 140 mmol/L (136-145) Potassium Level 3.8 mmol/L (3.5-5.1) Chloride Level 101 mmol/L (98-107) Carbon Dioxide Level 28 mmol/L (22-29) Anion Gap 14.8 mmol/L (8-16) Blood Urea Nitrogen 12 mg/dL (7-26) Creatinine 0.82 mg/dL (0.57-1.11) Estimat Glomerular Filtration Rate > 60 ML/MIN (60-) BUN/Creatinine Ratio 15 (6-25) Glucose Level 122 mg/dL (74-118) Calcium Level 10.1 mg/dL (8.4-10.2) Magnesium Level 1.9 MG/DL (1.3-2.1) Total Bilirubin 1.1 mg/dL (0.2-1.2) Aspartate Amino Transf (AST/SGOT) 97 IU/L (5-34) Alanine Aminotransferase (ALT/SGPT) 60 IU/L (0-55) Alkaline Phosphatase 144 IU/L (40-150) Creatine Kinase 85 IU/L (29-168) Creatine Kinase MB 1.30 ng/mL (0-5.0) Troponin I 0.027 ng/mL (0-0.300) B-Type Natriuretic Peptide 83.5 pg/mL (0-100) Total Protein 7.0 g/dL (6.5-8.1) Albumin 4.2 g/dL (3.5-5.0) Globulin 2.8 g/dL (2.3-3.5) Albumin/Globulin Ratio 1.5 (0.8-2.0) Lipase 46 U/L (8-78) Lab results reviewed: Yes Imaging Imaging results reviewed: Yes Impressions EXAMINATION: CHEST SINGLE (PORTABLE) INDICATION: Chest pain COMPARISON: None FINDINGS: LINES/TUBES:EKG leads overlie the chest. LUNGS:The lungs are well-inflated. No focal consolidation or pulmonary edema. PLEURA:No pleural effusion or pneumothorax. MEDIASTINUM:The cardiomediastinal silhouette appears normal in size and shape. Atherosclerotic calcifications of the thoracic aorta. BONES/SOFT TISSUES:No acute osseous injury. ABDOMEN:No free air under the diaphragm. IMPRESSION: No focal pneumonia or pulmonary edema. Signed by: Rashad Armstrong MD on 05/07/2020 9:04 AM Diagnostics Tests Diagnostic test(s) reviewed: Yes Procedures 12 Lead ECG Interpretation ECG Interpretation : ECG: ECG 1 Elevator Repairer Apprentice: Interpreted by ED physician Date: May 07, 2020 Rhythm: sinus bradycardia Rate: bradycardia (51) QRS axis: normal ST segments normal: Yes T waves normal: Yes Clinical Impression: abnormal ECG Assessment & Plan Medical Decision Making MDM CP WITH H/O CAD AND ALVAREZ'S ESOPH - CHECK CBC, CHEM'S, ECG, CARDIAC ENZYMES, LIPASE, CXR - DDX INCLUDES STEMI/NSTEMI, PANCREATITIS, GERD, NON-CARDIAC CAUSES SUCH COSTOCHONDRITIS/MUSCULOSKELETAL CP, PNEUMONIA Reassessment Reassessment NTP TO CW TO CONTROL BP AND ASSESS IF ANY IMPROVEMENT IN CP - BP IMPROVED BUT STILL WITH PAIN. PROTONIX IV AND GI COCKTAIL GIVEN WITHOUT RELIEF. REPEAT ECG UNCHANGED - SINUS XANDER WITH NO ST-TW CHANGES. WILL GIVE LOW DOSE MORPHINE, ADMIT R/O ACS I SPOKE WITH DR CANALES FOR ADMISSION Assessment & Plan Final Impression: (1) Chest pain Depart Disposition: ADMITTED Last Vital Signs Date Time Temp Pulse Resp B/P (MAP) Pulse Ox O2 Delivery O2 Flow Rate FiO2 05/07/20 08:42 49 13 174/64 99 05/07/20 07:46 97.5 Home Meds Reported Medications Biotin (BIOTIN) 5 Mg Tablet, 1 TAB PO DAILY 05/07/20 Ascorbic Acid (Vitamin C) 500 Mg Capsule, 2 CAP PO DAILY 05/07/20 Amlodipine Besylate (AMLODIPINE BESYLATE) 5 Mg Tablet, 5 MG PO DAILY, #30 TAB 05/07/20 Levothyroxine Sodium (LEVOTHYROXINE SODIUM) 50 Mcg Tablet, 50 MCG PO DAILY, #30 TAB 05/07/20 Atorvastatin Calcium (ATORVASTATIN CALCIUM) 20 Mg Tablet, 40 MG PO HS, #30 TAB 05/07/20 Carvedilol (CARVEDILOL) 12.5 Mg Tablet, 12.5 MG PO BID, #60 TAB 05/07/20 Lisinopril/Hydrochlorothiazide (LISINOPRIL-HCTZ 10-12.5 MG TAB) 1 Each Tablet, 1 TAB PO DAILY 05/07/20 Aspirin (ASPIR-LOW) 81 Mg Tablet.dr, DAILY 11/23/16 Gabapentin (GABAPENTIN) 100 Mg Capsule 11/23/16 Rabeprazole Sodium (ACIPHEX) 20 Mg Tablet.dr, DAILY THERAPEUTIC INTERCHANGE WITH PROTONIX PER [facility] 11/23/16 Nitroglycerin (NITROGLYCERIN) 0.4 Mg Tab.subl, 0.4 MG SL PRN, TAB 11/23/16 Discontinued Reported Medications [Amlodipine Besylate] No Conflict Check, 2.5 MG DAILY 11/23/16 [Levothyroxine] No Conflict Check, 25 MG DAILY 11/23/16 [Atorvastatin] No Conflict Check, 40 MG DAILY 11/23/16 Metoprolol Tartrate (METOPROLOL TARTRATE) 50 Mg Tablet, 50 MG PO BID, TAB 11/23/16 [Lisinopril] No Conflict Check, 20 MG BID 11/23/16 Potassium Chloride (KLOR-CON 10) 10 Meq Tablet.er, DAILY 11/23/16 Furosemide (FUROSEMIDE) 40 Mg Tablet, 40 MG PO Daily, #30 TAB 11/23/16 Medications in the ED Pantoprazole Sodium 40 mg ONCE STAT IV Last administered on 05/07/20at 08:22; Admin Dose 40 MG; Start 05/07/20 at 07:48; Stop 05/07/20 at 07:49 Aspirin 81 mg ONCE STAT PO Last administered on 05/07/20at 08:22; Admin Dose 81 MG; Start 05/07/20 at 07:56; Stop 05/07/20 at 07:57 Nitroglycerin 1 gm ONCE ONCE TOP Last administered on 05/07/20at 08:22; Admin Dose 1 GM; Start 05/07/20 at 08:00; Stop 05/07/20 at 08:01 Sodium Chloride 500 ml @ 0 mls/hr Q0M ONCE IV Last administered on 05/07/20at 08:22; Admin Dose 500 MLS/HR; Start 05/07/20 at 08:00; Stop 05/07/20 at 08:01 Ondansetron HCl 4 mg ONCE STAT IV Last administered on 05/07/20at 08:22; Admin Dose 4 MG; Start 05/07/20 at 07:58; Stop 05/07/20 at 07:59 Magnesium Aluminum Silicate 30 ml ONCE ONCE PO Last administered on 05/07/20at 08:54; Admin Dose 30 ML; Start 05/07/20 at 08:45; Stop 05/07/20 at 08:46 Belladonna Alkaloids/ Phenobarbital 5 ml ONCE ONCE PO Last administered on 05/07/20at 08:54; Admin Dose 5 ML; Start 05/07/20 at 08:45; Stop 05/07/20 at 08:46 Lidocaine HCl 10 ml ONCE ONCE PO Last administered on 05/07/20at 08:54; Admin Dose 10 ML; Start 05/07/20 at 08:45; Stop 05/07/20 at 08:46 Aspirin 81 mg QAM PO ; Start 05/08/20 at 09:00; Stop 06/07/20 at 08:59; Status UNV Nitroglycerin 0.4 mg Q5M PRN SL CHEST PAIN; Start 05/07/20 at 09:15; Status UNV Morphine Sulfate 2 mg Q3H PRN IV MODERATE PAIN (4-6); Start 05/07/20 at 09:15; Stop 05/14/20 at 09:14; Status UNV Famotidine 20 mg Q12H IV ; Start 05/07/20 at 09:15; Stop 06/06/20 at 09:14; Status UNV Ondansetron HCl 4 mg Q4H PRN IV NAUSEA AND VOMITING; Start 05/07/20 at 09:15; Stop 06/06/20 at 09:14; Status UNV LEONARDO BYRNE MD May 07, 2020 09:34
--- OUTSIDE RECORDS SUMMARY | 2020-05-07 09:35 | XMS REPORT | Continuity of Care Document ---
Author Author [facility] t Organization [facility] Address [address] [place] [address] Phone Unavailable Care Team Providers Care Curriculum Coach Name Role Phone Cheng JO, Blake Kim PCP Shira BYRNE Attphys Unavailable Radha JO, Bebeto Zurita Attphys Andrzej JO, Perez Silvestre Attphys [phone] Pranav NET DEVELOPER WITH [employer], Abdias Attphys Unavailable Leslie NET DEVELOPER WITH [employer], Codi Attphys Unavailable Payers Payer Name Policy Type Policy Number Effective Date Expiration Date S pal[place] MEDICAREMEDICARE PART A [place] B[place]2008[place] 2008 00:00:00 [place] [employer]xxxxxxxx1-PresentCommercial xxxxxxxx 2018 00:00:00 [place] [employer] Problems Condition Name Condition Details Condition Category Status Onset Date Resolution Date Last Treatment Date Treating Clinician Comments Source Mixed stress and urge urinary incontinence Mixed stres s and urge urinary incontinence Disease Active 2019-10-10 00:00:00 [place] [facility] History of Myocardial infarct History of Myocardial infarct Prob shanna HL7.CCDAR2 Resolved [facility] Heart disease Heart disease Problem HL7.CCDAR2 Active [facility] Generalized osteoarthritis of hand Generalized osteoarthriti s of hand Problem HL7.CCDAR2 Active [facility] Allergies, Adverse Reactions, Alerts Allergy Name Allergy Type Status Severity Reaction(s) Onset Date Inacti ve Date Treating Clinician Comments Source Sulfa (Sulfonamide Antibiotics) Propensity to adverse reactions to drug Active Rash, Other (See Comments) 2019-10-10 00:00:00 FEVER Jordan Decker Family History Family Member Diagnosis Comments Start Date Stop Date Source Mother Family history of Heart disease [facility] Sister Family history of Rheumatoid arthritis [facility] Sister Family history of Arthritis [facility] Natural father No Known Problems Mi [...] BY MOUTH ONCE DAILY FOR 90 DAYS [facility] Lisinopril 20 MG Oral Tablet Lisinopril 20 MG Oral Tablet 00:00:00 Yes QD TAKE 1 TABLET DAILY DIRECTED. [facility] Lasix 40 MG Oral Tablet Lasix 40 MG Oral Tablet 2014-12-03 00:00:00 Yes 1 QD TAKE 1 TABLET DAILY. [facility] Aciphex 20 MG Oral Tablet Delayed Release Aciphex 20 M G Oral Tablet Delayed Release 2014-12-03 00:00:00 Yes 1 QD TAKE 1 TABLET DA PAUL. [facility] Metoprolol Succinate ER 25 MG Oral Tablet Extended Rel ease 24 Hour Metoprolol Succinate ER 25 MG Oral Tablet Extended Release 24 Hour 2014-12-03 00:00:00 Yes TAKE 1 TABLET BY MOUTH TWICE DAILY [facility] Crestor 20 MG Oral Tablet Crestor 20 MG Oral Tablet 2014-12-03 00:00:0 0 Yes 1 QD TAKE 1 TABLET DAILY. [facility] Klor-Con 10 10 MEQ Oral Tablet Extended Release Klor-C on 10 10 MEQ Oral Tablet Extended Release 2014-12-03 00:00:00 Yes TAKE 1 TABLET EVERY OTHER DAY. [facility] Vitamin C 1000 MG Oral Tablet Vitamin C 1000 MG Oral Tablet 2014 00:00:00 Yes 1 QD TAKE 1 TABLET DAILY. [facility] Biotin 5000 MCG Oral Capsule Biotin 5000 MCG Oral Capsule 00:00:00 Yes 1 QD TAKE 1 CAPSULE DAILY. [facility] Aspirin 81 MG TABS Aspirin 81 MG TABS 2014-12-03 00:00:00 Yes 1 QD TAKE 1 TABLET DAILY. [facility] Voltaren 1 % Transdermal Gel Voltaren 1 % Transdermal Gel 00:00:00 Yes AKTT GONZALEZ M.D. Apply 1 inch to affected area twice daily as needed for pain. [facility] Vital Signs Vital Name Observation Time Observation Value Comments Source Systolic blood pressure 2019-11-18 08:00:00 158 mm[Hg] Jordan Decker Diastolic blood pressure 2019-11-18 08:00:00 90 mm[Hg] Jordan Decker Body height 2019-11-18 08:00:00 160 cm Jordan Decker Body weight 2019-11-18 08:00:00 60.782 kg Jordan Decker BMI 2019-11-18 08:00:00 23.74 kg/m2 Jordan Decker Heart rate 2019-10-10 09:37:00 59 /min Jordan Decker Respiratory rate 2019-10-10 09:37:00 16 /min Kelly Decker Oxygen saturation in Arterial blood by Pulse oximetry 2018-11 09:37:00 98 /min Jordan Decker Body temperature 2019-10-10 09:18:00 36.61 Sweetie Kelly Decker Procedures Procedure Date / Time Performed Performing Clinician [facility] shirley [id number] 2019-11-18 08:06:00 Yudith Garcia DC AN ELECTIVE ENDOTRACHEAL AIRWAY 2019-10-10 07:34:21 Nathan Mooney CYSTOSCOPY 2019-10-10 07:15:00 Yudith Garcia COLPORRHAPHY, COMBINED ANTEROPOSTERIOR, WITH ENTEROCEL E REPAIR 2019-10-10 07:15:00 Yudith Garcia URETHROPEXY, USING TRANSVAGINAL TAPE 2019-10-10 07:15:00 Stacy Garcia XR CHEST 2 VW 2019-09-26 11:05:00 Yudith Garcia HC COMPLETE BLD COUNT W/AUTO DIFF 2019-09-26 10:40:00 King Garcia BASIC METABOLIC PANEL 2019-09-26 10:40:00 [place], Yudith Mendoza ton [facility] ESTIMATED GFR 2019-09-26 10:40:00 [place], Yudith Ortega Me [facility]ist ECG 12-LEAD 2019-09-26 10:39:44 [place], Yudith Ortega Il [facility]odist POC URINALYSIS DIPSTICK 2019-09-25 10:58:00 Radha, Yudith Decker URODYNAMICS 2019-09-25 00:00:00 [place], Yudith Ortega [facility] POC URINALYSIS DIPSTICK 2019-07-22 13:59:00 [place], Yudith Decker URINE CULTURE 2019-07-22 13:58:00 Radha, Yudith Ortega Il [facility]odist [id number] 2019-07-22 13:58:00 RadhaYudith Me thodist History of Back Surgery [facility] Plan of Care Planned Activity Planned Date Details Comments Source Future Scheduled Test 2020-06-27 00:00:00 INFLUENZA VACCINE [code = INFLUENZA VACCINE] [facility] Future Scheduled Test 2008 00:00:00 65+ PNEUMOCOCCAL V ACCINE (1 of 2 - PCV13) [code = 65+ PNEUMOCOCCAL VACCINE (1 of 2 - PCV13)] [facility] Future Scheduled Test 1993 00:00:00 COLONOSCOPY SCREEN ING [code = COLONOSCOPY SCREENING] [facility] Future Scheduled Test 1993 00:00:00 SHINGLES VACCINES (#1) [code = SHINGLES VACCINES (#1)] [facility] Results Test Description Test Time Test Comments Results Result Comments Source CHEST SINGLE (PORTABLE) 2020-05-07 09:04:00 [facility] [address] [place], [place] [address] Patient Name: LUISA BASURTO MR #: [id number] : 1945 Age/Sex: 74/F Req #: [id number] Adm Physician: Ordered by: LEONARDO BYRNE MD Report #: [id number] Location: ER Room/Bed: Procedure: [id number] DX/CHEST SINGLE (PORTABLE) Exam Date: 05/07/20 Exam Time: 821 REPORT STATUS: Signed EXAMINATION: CHEST SINGLE (PORTABLE) INDICATION: Chest pain COMPARISON: None FINDINGS: LINES/TUBES:EKG leads overlie the chest. LUNGS:The lungs are well-inflated. No focal consolidation or pulmonary edema. PLEURA:No pleural effusion or pneumothorax. MEDIASTINUM:The cardiomediastinal silhouette appears normal in size and shape. Atherosclerotic calcifications of the thoracic aorta. BONES/SOFT TISSUES:No acute osseous injury. ABDOMEN:No free air under the diaphragm. IMPRESSION: No focal pneumonia or pulmonary edema. Signed by: Natividad Wilson MD on 05/07/2020 9:04 AM Dictated By: NATIVIDAD WILSON MD 3 Transcribed By: SANTA on 05/07/20903 COPY TO: LEONARDO BYRNE MD POC BLADDER SCAN/PVR 2019-11-18 08:06:00 Test Item Total volume, urine (test code = 2338) 0 ml Ortega [id number] 07:34:21Era Mooney 10/10/2019 7:35 AMAirwayDate/Time: 10/10/2019 7:23 AMPerformed by: Era MooneyeAuthorized by: Konrad Donnelly MD Location: ORUrgency: ElectiveDifficult Airway: No Anesthesiologist: Konrad Donnelly MDResident/CHLORINE CELLS OPERATOR/AA: Era MooneyePerformed by: resident/CHLORINE CELLS OPERATOR/AAPreoxygenated with 100% O2: Yes Mask Ventilation: Easy [...] RSI: No Number of Attempts at Approach: [address] [place] [address] MethodistBasic metabolic [id number] 12:08:48* Test Item Value Reference Range Interpretation Comments Sodium (test code = 2951-2) 145 135- 148 mEq/L Potassium (test code = 2823-3) 4.3 3.5- 5.0 mEq/L Chloride (test code = 2075-0) 104 98- 112 mEq/L CO2 (test code = 8-9) 28 24- 31 mEq/L Anion gap (test code = 60208-9) 13@ANIO 7- 15 mEq/L BUN (test code = 3094-0) 19 mg/dL 8-23 Creatinine (test code = 2160-0) 0.90 mg/dL 0.5-0.9 Glucose (test code = 2345-7) 107 mg/dL 65-99 H Calcium (test code = 70392-3) 9.4 mg/dL 8.8-10.2 Lab Interpretation (test code = 03521-5) Abnormal Ortega MethodistEstimated [id number] 12:08:48* Test Item Value Reference Range Interpretation Comments Estimated GFR (test code = 5488) 62 mL/min/1.73 m2 Catergory Units InterpretationG1 >=90 Normal or highG2 60-89 Mildly aobfnyhcxM9y 45-59 Mildly to moderately yqaukboypR9y 30-44 Moderately to severely decreasedG4 15-29 Severely decreasedG5 <15 Kidney failureThe eGFR was calculated using the Chronic Kidney Disease Epidemiology Collaboration (CKD-EPI) equation. Interpretation is based on recommendations of the National Kidney Foundation-Kidney Disease Outcomes Quality Initiative (NKF-KDOQI) published in 2014. Jordan DeckerECG 12 [id number] 11:54:05* Test Item Value Reference Range Interpretation Comments Ventricular rate (test code = 253) 64 Atrial rate (test code = 255) 64 DC interval (test code = 266) 158 QRSD [...] sinus rhythm-N ormal ECG-No previous ECGs available- Jordan MethodistCB with platelet and [id number] 11:53:48* Test Item Value Reference Range Interpretation Comments WBC (test code = 95813-2) 6.06 4.50- 11.00 k/uL RBC (test code = 99437-3) 4.21 m/uL 4.2-5.5 HGB (test code = 718-7) 11.9 g/dL 12-16 L HCT (test code = 4544-3) 37.8 % 37-47 MCV (test code = 787-2) 89.8 fL 82-100 MCH (test code = 785-6) 28.3 pg 27-34 MCHC (test code = 786-4) 31.5 g/dL 31-37 RDW - SD (test code = 47708-7) 47.0 fL 37-55 MPV (test code = 28741-1) 10.9 fL 8.8-13.2 Platelet count (test code = 23008-6) 199 150- 400 k/uL Nucleated RBC (test code = 27440-7) 0.00 /100 WBC Neutrophils (test code = 76479-1) 59.4 % 39-69 Lymphocytes (test code = 58031-7) 29.5 % 25-45 Monocytes (test code = 17303-1) 9.2 % 0-10 Eosinophils (test code = 86728-8) 0.8 % 0-5 Basophils (test code = 36212-0) 0.8 % 0-1 Lab Interpretation (test code = 40960-3) Abnormal [place] [facility] Chest 2 [id number] 11:09:02 Interface, Radiology Results Incoming - 09/26/2019 11:12 AM CDTTWO VIEW CHEST, 09/26/2019Clinical history: Preoperative testingTechnique: PA and lateral views chest.Comparison: NoneDISCUSSION:The lungs are clear and symmetrically inflated. No pleural effusions. Cardiac size and mediastinal contour are normal. Pulmonary vasculature is normal. The skeleton is grossly intact. Mild degenerative disc disease. Mild abdominal aortic atherosclerosis.IMPRESSION:No acute abnormality. [facility] urinalysis [id number] 10:58:00* Test Item Value Reference Range Interpretation Comments Color urine, POC (test code = 1256475) Yellow Clarity urine, POC (test code = 6854014) Clear Glucose urine, POC (test code = 3058491) Negative Negative Bilirubin urine, POC (test code = 3217560) Negative Negative Ketones urine, POC (test code = 1091211) Negative Negative Specific gravity urine, POC (test code = 9373893) </=1.005 1.00 5-1.030 Blood urine, POC (test code = 1198864) Negative Negative pH urine, POC (test code = 1324500) 5.0 5.0, 5.5, 6. 0, 6.5, 7.0, 7.5, 8.0, 8.5 Protein urine, POC (test code = 7676074) Negative Negative Urobilinogen urine, POC (test code = 2663588) <2.0 <2.0 Nitrite urine, POC (test code = 4081031) Negative Negative Leukocyte esterase urine, POC (test code = 8070369) Negative Ne bernieive [facility]
--- OUTSIDE RECORDS SUMMARY | 2020-05-07 09:35 | XMS REPORT | Clinical Summary ---
Author Author [facility] Organization [facility] Address Unknown Phone Unavailable Care Team Providers Care Pin Drafter Operator Name Role Phone Julio Anand MD PCP [...] Surgery General Surgery Yudith Garcia MD 10/10/2019 [facility] General Surgery Encounter Yudith Garcia MD 09/26/2019 [...] Comments Vital Sign 158/90 11/18/2019 8:00 AM PIG CONVEYOR OPERATOR Blood Pressure 59 10/10/2019 9:37 AM PIG CONVEYOR OPERATOR Pulse 36.6 C (97.9 F) 10/10/2019 9:18 AM PIG CONVEYOR OPERATOR Temperature 16 10/10/2019 9:37 AM PIG CONVEYOR OPERATOR Respiratory Rate 98% 10/10/2019 9:37 AM PIG CONVEYOR OPERATOR Oxygen Saturation - - Inhaled Oxygen Concentration 60.8 kg (134 lb) 11/18/2019 8:00 AM PIG CONVEYOR OPERATOR Weight 160 cm (5' 3") 11/18/2019 8:00 AM PIG CONVEYOR OPERATOR Height 23.74 11/18/2019 8:00 AM PIG CONVEYOR OPERATOR Body Mass Index Plan of Treatment Health Maintenance Due Date Last Done Comments COLONOSCOPY SCREENING 1993 SHINGLES VACCINES (#1) 1993 65+ PNEUMOCOCCAL VACCINE 2008 (1 of 2 - PCV13) INFLUENZA VACCINE 06/27/2020 Implants Device Identifier Shelf Expiration Date Model / Serial / L ot Implanted Type Area Manufactur er 02/25/2020 TVTRL / / [id number] System Contnc Rtrpbc Gynecare Tvt Urological N/A: Bladder GYNECARE Exact - [id number] Implants Implanted: Qty: 1 on 10/10/2019 by or Yudith Quinn MD at [facility] Procedures Comments Procedure Name Priority Date/Time Associated Diag nosis [id number] Routine 11/18/2019 Post-operative state 8:06 AM PIG CONVEYOR OPERATOR KS AN ELECTIVE Routine 10/10/2019 ENDOTRACHEAL AIRWAY 7:34 AM PIG CONVEYOR OPERATOR URETHROPEXY, USING 10/10/2019 CYSTOCELE, STRESS URINARY TRANSVAGINAL TAPE 7:15 AM PIG CONVEYOR OPERATOR INCONTINENCE N81.11, N39.3 COLPORRHAPHY, COMBINED 10/10/2019 CYSTOCELE, STR ESS URINARY ANTEROPOSTERIOR, WITH 7:15 AM PIG CONVEYOR OPERATOR INCONTINENCE ENTEROCELE REPAIR N81.11, N39.3 CYSTOSCOPY 10/10/2019 CYSTOCELE, STRESS U RINARY 7:15 AM PIG CONVEYOR OPERATOR INCONTINENCE N81.11, N39.3 XR CHEST 2 VW [...] acquired Mixed stress and urge urinary incontinence [id number] Routine 07/22/2019 Bladder prolaps e, female, 1:58 PM CDT acquired Mixed stress and urge urinary incontinence URINE CULTURE Routine 07/22/2019 Bladder prolaps e, female, 1:58 PM CDT acquired Mixed stress and urge urinary incontinence after 05/07/2019 Results * POC BLADDER SCAN/PVR (11/18/2019 8:06 AM PIG CONVEYOR OPERATOR) Only the most recent of 2 results within the time period is included. Total volume, 0 ml urine Specimen Urine * Airway (10/10/2019 7:34 AM PIG CONVEYOR OPERATOR) Narrative Performed At [facility] 10/10/2019 7:35 AM Airway Date/Time: 10/10/2019 7:23 AM Performed by: [facility] Authorized by: Konrad Donnelly MD Location: OR Urgency: Elective Difficult Airway: No Anesthesiologist: Mark Donnelly MD Resident/MANAGER WEB APPLICATION/AA: [facility] Performed by: resident/MANAGER WEB APPLICATION/AA Preoxygenated with 100% O2: Yes Mask Ventilation: [...] Address City/State/Zipcode Ph one Number [facility] [address] [place] [address] * Estimated GFR (09/26/2019 10:40 AM CDT) [facility] Estimated GFR 62 mL/min/1.73 m2 [place] Comment: [facility] Interpretation G1 >=90 Normal or high [...] 2014. Specimen Plasma specimen Performing Organization Address City/[facility] Ph one Number [facility] [place] [id number] [place] [address] [place], [place] [address] PATHOLOGY AND GENOMIC MEDICINE [facility] [id number] [place] [address] [place] [address] [facility] * CBC with platelet and differential (09/26/2019 10:40 AM CDT) WBC 6.06 4.50 - 11.00 k/uL [facility] RBC 4.21 4.20 - 5.50 m/uL [facility] HGB 11.9 (L) 12.0 - 16.0 g/dL [facility] HCT 37.8 37.0 - 47.0 % [facility] MCV 89.8 82.0 - 100.0 fL [facility] MCH 28.3 27.0 - 34.0 pg [facility] MCHC 31.5 31.0 - 37.0 g/dL [facility] RDW - SD 47.0 37.0 - 55.0 fL [facility] MPV 10.9 8.8 - 13.2 fL [facility] Platelet count 199 150 - 400 k/uL [facility] Nucleated RBC 0.00 /100 WBC [facility] Neutrophils 59.4 39.0 - 69.0 % [facility] Lymphocytes 29.5 25.0 - 45.0 % [facility] Monocytes 9.2 0.0 - 10.0 % [facility] Eosinophils 0.8 0.0 - 5.0 % [facility] Basophils 0.8 0.0 - 1.0 % [facility] Specimen Blood Performing Organization Address City[facility] Ph one Number [facility] [place] [id number] [place] [address] [place] [address] PATHOLOGY AND GENOMIC MEDICINE [facility] [id number] [place] [address] * Basic metabolic panel (09/26/2019 10:40 AM CDT) Sodium 145 135 - 148 mEq/L [facility] Potassium 4.3 3.5 - 5.0 mEq/L [facility] Chloride 104 98 - 112 mEq/L [facility] CO2 28 24 - 31 mEq/L [facility] Anion gap 13@ANIO 7 - 15 mEq/L [facility] BUN 19 8 - 23 mg/dL [facility] Creatinine 0.90 0.50 - 0.90 mg/dL [facility] Glucose 107 (H) 65 - 99 mg/dL [facility] Calcium 9.4 8.8 - 10.2 mg/dL [facility] Specimen Plasma specimen Performing Organization Address City/[facility] Ph one Number [facility] [place]MENT [place] [id number] [place] [address] [place] [phone] PATHOLOGY AND GENOMIC MEDICINE [facility] [id number] [place] [address] [place] [id number] [facility] * ECG 12 lead (09/26/2019 10:39 AM CDT) Ventricular 64 [facility] rate Atrial rate 64 [facility] KS interval 158 [facility] QRSD interval 82 [facility] QT interval 426 [facility] QTC interval 439 [facility] P axis 1 32 [facility] QRS axis 1 36 [facility] T wave axis 43 [facility] EKG impression Normal sinus rhythm-Normal [facility] MUSE ECG-No previous ECGs available- Specimen Narrative Performed At This result has an attachment that is n ot available. Performing Organization Address City/[facility] Ph one Number [facility] MUSE [address] [place] [address] * POC urinalysis dipstick (09/25/2019 10:58 AM [...] Specimen Urine Narrative Performed At Performed at: [facility] [id number] Collator Hand: Jonas Childs MD, Phone: [phone] Antibiotic Method Susceptibility Organism Amoxicillin/Clavulanate S ug/mL: [...] ug/mL: Susceptible Escherichia coli Comment: Performed at: [address] [place] [id number] Collator Hand: Jonas Childs MD, Phone: [phone] Performing Organization Address City/State/Zipcode Ph one Number [facility] after 05/07/2019 Insurance Type Payer Benefit Subscriber ID Effective Phone Address Plan / Dates Group Medicare MEDICARE MEDICARE xxxxxxxxxxx 2008-P JORDAN, PART A AND resent [place] B Commercial [employer]INT[place] OF xxxxxxxx 2018-P KELVIN schwab Advance Directives For more information, please contact: [phone] Patient Wireless Retail Manager Explanation Type Date Recorded Advance Directives, 09/26/2019 9:37 AM Living Will and Medical Power of Picking Supervisor
[2020-05-07] MEDS ORDERED: MORPHINE SULFATE 2 MG/ML SYR 1ML IV STA (10:01)
--- NOTE | 2020-05-07 13:15 | NUR ---
received patient from the ER via wheelchair. patient ambulated from the wheelchair to the bed, no s/s of distress noted. pt was oriented to room, call light within reach and instructed pt to call RN for help. is at the bedside.
[2020-05-07] MEDS ORDERED: SILICA PO (13:43)
[2020-05-07] MEDS ORDERED: IRON PO (13:43)
[2020-05-07 17:09] LABS: CREATINE KINASE MB 0.9 ng/mL (0-5.0)
--- NOTE | 2020-05-07 19:15 | NUR ---
Completed bedside nursing shift report with morning nurse. Pt alert and oriented to name, HOB 45 degrees. Pt denies pain at this time. Call light within reach. Call light within reach. Bed low and locked.
[2020-05-07 20:00] VITALS: BP 113/46
[2020-05-07] MEDS ORDERED: NITROGLYCERIN 0.4 MG SUBL SL SCH (23:15)
[2020-05-08] VITALS (10 sets, daily range): BP systolic 109–145; BP diastolic 40–59
[2020-05-08 02:32] LABS: CREATINE KINASE MB 0.4 ng/mL (0-5.0)
--- NOTE | 2020-05-08 06:56 | NUR ---
BS ROUNDS COMPLETED WITH MORNING NURSE, PT NO ACUTE DISTRESS.
[2020-05-08 07:00] LABS: BASOPHILS % 0.2 % (0.0-1.0); HEMATOCRIT 32.8 % (34.2-44.1); HEMOGLOBIN 10.7 g/dL (12.0-16.0); LYMPHOCYTES # (AUTO) 0.6 (1.0-3.2); LYMPHOCYTES % 6.1 % (18.0-39.1); MEAN CORPUSCULAR HEMOGLOBIN 28.9 pg (28-32); MEAN CORPUSCULAR HGB CONC 32.6 g/dL (31-35); MEAN CORPUSCULAR VOLUME 88.6 fL (81-99); MONOCYTES # (AUTO) 0.5 (0.2-0.8); NEUTROPHILS % 88.2 % (38.7-80.0); PLATELET COUNT 135 x10e3/uL (140-360); RED CELL DISTRIBUTION WIDTH 15.3 % (11.7-14.4)
[2020-05-08] MEDS: PANTOPRAZOLE SOD 40 MG TABEC PO SCH (07:30)
--- NOTE | 2020-05-08 07:32 | NUR ---
PATIENT SITTING UP IN BED TALKING ON THE PHONE, NO DISTRESS NOTED. DENIED PAIN AT THIS TIME. BED IN LOWER POSITION, CALL LIGHT AT REACH.
[2020-05-08 07:41] LABS: ANION GAP 13.5 mmol/L (8-16); BLOOD UREA NITROGEN 11 mg/dL (7-26); BUN/CREATININE RATIO 13 (6-25); CALCIUM 8.6 mg/dL (8.4-10.2); CARBON DIOXIDE 29 mmol/L (22-29); CHLORIDE 98 mmol/L (98-107); CHOL/HDL RATIO 2.3 (3.0-3.6); CHOLESTEROL 95 MD/DL (0-199); CREATININE, SERUM 0.88 mg/dL (0.57-1.11); EST GLOMERULAR FILTRATION RATE > 60 ML/MIN (60-); GLUCOSE 111 mg/dL (74-118); HDL CHOLESTEROL 42 MG/DL (40-60); LDL CHOLESTEROL 41 MG/DL (60-130); POTASSIUM 3.5 mmol/L (3.5-5.1); SODIUM 137 mmol/L (136-145); TRIGLYCERIDES 61 MG/DL (0-149)
[2020-05-08 07:54] LABS: MAGNESIUM 1.7 MG/DL (1.3-2.1); PHOSPHORUS 2.8 MG/DL (2.3-4.7)
[2020-05-08] MEDS ORDERED: NON-FORMULARY MEDICATION (Biotin 1 TAB) PO SCH (09:00)
[2020-05-08] MEDS ORDERED: IRON PO SCH (09:00)
[2020-05-08] MEDS: LEVOTHYROXINE SODIUM 50 MCG TAB PO SCH (09:00)
[2020-05-08] MEDS: FERROUS SULFATE 325 MG TAB PO SCH (09:00)
[2020-05-08] MEDS: ASCORBIC ACID 500 MG TAB PO SCH ×2 (09:00→17:00)
[2020-05-08] MEDS: CARVEDILOL 12.5 MG TAB PO SCH ×4 (09:00→18:25)
[2020-05-08] MEDS: GABAPENTIN 100 MG CAP PO SCH (09:00)
[2020-05-08] MEDS: ASPIRIN 81 MG CHEW TAB PO SCH (09:00)
[2020-05-08] MEDS: BIOTIN 5 MG PO SCH (09:00)
[2020-05-08] MEDS ORDERED: PANTOPRAZOLE SOD 40 MG TABEC PO SCH (09:00)
[2020-05-08] MEDS ORDERED: ASPIRIN 81 MG ENTERIC COATED PO SCH (09:00)
[2020-05-08] MEDS: FAMOTIDINE 20 MG/2 ML VIAL IV SCH ×2 (09:15→21:40)
[2020-05-08] MEDS ORDERED: CLOPIDOGREL BISULFATE 75 MG TAB PO ONE (11:15)
[2020-05-08] MEDS: SODIUM CHLORIDE 0.9% 1000ML 1,000 ML IV SCH ×2 (11:16→20:30)
--- NOTE | 2020-05-08 11:21 | NUR ---
BUILDING SERVICES ENGINEER IN TO SEE PATIENT, NEW ORDERS RECEIVED AND IMPLEMENTED.
[2020-05-08] MEDS ORDERED: LIDOCAINE HCL 2% LOCAL 20 ML VIAL ONE (11:54)
[2020-05-08] MEDS ORDERED: FENTANYL CITRATE/PF 100MCG/2 ML INJ ONE (11:54)
[2020-05-08] MEDS ORDERED: MIDAZOLAM HCL 2 MG/2 ML VIAL ONE (11:54)
[2020-05-08] MEDS ORDERED: HEPARIN SOD/SOD CHLORIDE 2,000 ML ONE (11:56)
[2020-05-08] MEDS ORDERED: IOPAMIDOL 370 MG/ML 200 ML INFUS..BTL INJ ONE ×2 (11:58→12:22)
[2020-05-08] MEDS ORDERED: SODIUM CHLORIDE 0.9% 1000ML 0 ML ONE (12:01)
--- NOTE | 2020-05-08 12:08 | NUR ---
PATIENT OFF UNIT TO SANE NURSE.
[2020-05-08] MEDS ORDERED: BIVALRIUDIN 250 MG/VIAL VIAL IV ONE (12:35)
[2020-05-08] MEDS ORDERED: SODIUM CHLORIDE 0.9% 50ML 50 ML ONE (12:36)
[2020-05-08] MEDS ORDERED: ASPIRIN 325 MG TAB ONE (13:00)
[2020-05-08] MEDS ORDERED: CEFAZOLIN SOD 2 GM/D5W 50ML 50 ML IV ONE (13:01)
--- NOTE | 2020-05-08 19:34 | Consultation ---
DATE OF CONSULTATION: 05/08/2020 REASON FOR CONSULTATION: Chest pain. HISTORY OF PRESENT ILLNESS: This is a 74-year-old female with history of CAD, status post PCI, hypertension, hyperlipidemia, hypothyroidism, and Concepcion's disease. The patient presents to the [facility] ER with complaints of substernal chest pain around 5 a.m., took AcipHex and Pepto without much relief. Therefore, came to the ER for further evaluation. The patient is seen in room, reports that she is being followed by Dr. Arviuz for many years every six months, states woke up about 5 in the morning with pressure sensation in the substernal region. Took her AcipHex and Pepto thinking it was her Concepcion's disease, however, symptoms did not improve. Therefore, came to the ER for further evaluation. In the ER, she was given GI cocktail without improvement of symptoms. Cardiology was consulted to evaluate the patient. EKG noted without any changes suggestive of acute event. Labs noted. Cardiac enzymes negative x3. Currently, the patient is chest pain-free without shortness of breath. Chest pain symptoms were pressure, substernal, nonradiating, with slight shortness of breath lasting about 2 hours. Currently chest pain free. PAST MEDICAL HISTORY: CAD, status post PCI in 2005 and again in 2008, hypertension, hyperlipidemia, hypothyroidism, Concepcion's disease. SURGICAL HISTORY: PCI x2, most recent 2008, hysterectomy, tonsillectomy, back surgery, bladder suspension surgery. FAMILY HISTORY: Father age of 35 from a train accident. Sister history of CAD and pancreatic cancer. Mother , history of CAD. SOCIAL HISTORY: She is . She retired from a chiropractic office. Denies any tobacco use, positive for social alcohol use. HOME MEDICATIONS: Include: 1. Aspirin 81 mg daily. 2. Norvasc 5 mg daily. 3. Lipitor 20 mg daily. 4. Coreg 12.5 mg b.i.d. 5. Levothyroxine 50 mcg daily. 6. Lisinopril 10 mg daily. 7. Hydrochlorothiazide 12.5 mg daily. ALLERGIES: SULFA. REVIEW OF SYSTEMS: GENERAL: Denies any fatigue, weakness, fevers, chills, or night sweats. SKIN: No rashes or bruises. HEENT: No nausea, vomiting, vision change, blurred vision, double vision, epistaxis, or sore throat. CARDIAC: Positive for chest pain as above. Positive for dyspnea on exertion. Denies any orthopnea, PND, or lower extremity edema or palpitations. RESPIRATORY: Dyspnea on exertion. Denies any coughing or hemoptysis. GI: Reports good appetite. No nausea, vomiting, diarrhea, constipation, melena, tarry or bloody stools. URINARY: Denies any frequency, urgency, dysuria, or hematuria. VASCULAR: Denies any lower extremity edema or claudication. MUSCULOSKELETAL: Positive for generalized back pains and joint pains. NEUROLOGIC: Denies any numbness, tingling, tremors, blackouts, seizures. HEMATOLOGY: Denies any anemia or bruising. ENDOCRINE: Denies heat or cold intolerance, polyuria, polydipsia, or polyphagia. PHYSICAL EXAMINATION: VITAL SIGNS: Height 63 inches, weight 119 pounds. Temperature 98.7, pulse 73, blood pressure 109/52, pulse ox 100% on room air. GENERAL: Appears stated age, reliable informant. No acute distress. SKIN: No rashes or bruises noted. HEENT: Normocephalic. Pupils are equal and reactive. Extraocular movements intact. Trachea midline. No JVD. No carotid bruits noted. HEART: Regular rate and rhythm. PMI about 4th and 5th intercostal space. LUNGS: Bilateral breath sounds. Clear to auscultation. Good airway entry and exit. ABDOMEN: Soft, nontender, and nondistended. No organomegaly noted. MUSCULOSKELETAL: Good muscle strength throughout. No lower extremity edema noted. VASCULAR : +2 radial pulses bilaterally, +1 DP/PT pulses bilaterally. NEUROLOGIC: Cranial nerves 2 through 12 seem intact. LABORATORY DATA: Sodium 137, potassium 3.5, chloride 98, bicarb 29, BUN 11, creatinine 0.8, glucose 111. BNP 83. Troponin 0.02, next 0.001, next 0.014. White count 9, hemoglobin 10.7, hematocrit 32, platelets 135. Chest x-ray showing no acute abnormalities. EKG showing sinus mau with heart rate of 51. ASSESSMENT: 1. Coronary artery disease with chest pain. 2. Hypertension. 3. Hyperlipidemia. 4. Hypothyroidism. 5. Concepcion's disease. PLAN: The patient presents to [facility] with substernal chest pain, pressure in nature, not relieved with GI cocktail. She is chest pain-free at this time. Enzymes negative x3. Long discussion with the patient regarding symptoms, very typical symptoms given her history. Left heart catheterization discussed at length including risks and benefits. Questions answered. The patient wishes to proceed with possible left heart catheterization. However, currently heart catheterization lab is unavailable secondary to multiple cases. We will give Plavix load. Aspirin, statin, beta-fidencio therapy. We will do an echo to evaluate heart function and structure. Continue telemonitoring. Further recommendations as course progresses. Long discussion with the patient and at bedside. Thank you very much for this consult. VERY TYPICAL ACS, FOR CATH/PCI DISCUSSED WITH PATIENT AND Dictated by Jigar Tucker, AIDEE Giovany Patterson MD DC/SONIA /[id number] ANA
--- NOTE | 2020-05-08 20:49 | Operative Report ---
DATE OF PROCEDURE: 05/08/2020 SURGEON: Giovany Patterson MD TITLE OF PROCEDURES: 1. Left cardiac catheterization. 2. PCI and stenting of the mid to distal LAD junction. CASE OPERATOR: Giovany Patterson MD INDICATION: Severe unstable angina in patient with known coronary artery disease with prior stenting by another physician to the proximal and at the junction of the mid to distal LAD. TECHNICAL DETAILS: After the usual sterile preparation and draping procedure, intravenous Versed and fentanyl given for sedation, local Xylocaine for anesthesia. A 4-Spanish sheath established in place, Génesis left 4 and 3DRC catheters to engage the coronaries. Pigtail for hemodynamic measurement and left ventriculogram. A decision was made to proceed for that reason. The existing 4-Spanish sheath exchanged for 6-Spanish sheath. Angiomax in the usual dosage is given. The guiding catheter was XB LAD 3, ballooning was 1.5 x 15, stenting 2 x 15 Resolute stent up to 15 atmospheres. The wire was Prowater, good results are noted; for that reason, sheath was removed, hemostasis was achieved manually. No complication. No blood loss. RESULTS: A. Coronary angiogram: 1. Left main: Free of disease. 2. Lad proximal stent at 30%. There is a stent patent, but I had the proximal end of the stent, there is 99.9% lesion with haziness, diagonal 50% lesion. 3. Circumflex coronary artery: Giving high OM. 4. Right coronary artery, 30% at the mid RCA, 70% at the PLV. B. Hemodynamic: Aorta pressure 150/80, LV pressure 150/20. C. Left ventriculogram: The right anterior oblique view showed normal size ventricle with an ejection fraction of 60% to 65%. PCI PROCEDURE: Guiding catheter XB LAD 3, balloon 1.5 x 15, wire is Prowater balloon is 1.5 x 15, stent 2 x 15 Resolute stent up to 15 atmospheres. Lesion prior to intervention at 99% following intervention at 0%. COMPLICATIONS: None. BLOOD LOSS: None. The patient had successful closure with Angio-Seal device. Giovany Patterson MD MOJ/MODL /[id number]
[2020-05-08] MEDS ORDERED: ATORVASTATIN 20 MG TAB PO SCH (21:00)
[2020-05-09] VITALS (8 sets, daily range): BP systolic 121–164; BP diastolic 51–69
[2020-05-09] MEDS: SODIUM CHLORIDE 0.9% 1000ML 1,000 ML IV SCH ×2 (04:45→17:44)
[2020-05-09 05:41] LABS: BASOPHILS % 0.4 % (0.0-1.0); EOSINOPHILS % 0.2 % (0.0-6.0); HEMATOCRIT 31.8 % (34.2-44.1); HEMOGLOBIN 10.1 g/dL (12.0-16.0); LYMPHOCYTES # (AUTO) 0.5 (1.0-3.2); LYMPHOCYTES % 11.7 % (18.0-39.1); MEAN CORPUSCULAR HEMOGLOBIN 28.7 pg (28-32); MEAN CORPUSCULAR HGB CONC 31.8 g/dL (31-35); MEAN CORPUSCULAR VOLUME 90.3 fL (81-99); MONOCYTES # (AUTO) 0.3 (0.2-0.8); MONOCYTES % 7.3 % (4.4-11.3); NEUTROPHILS # (AUTO) 3.6 (2.1-6.9); NEUTROPHILS % 80.2 % (38.7-80.0); PLATELET COUNT 116 x10e3/uL (140-360); RED BLOOD COUNT 3.52 x10e6/uL (3.6-5.1); RED CELL DISTRIBUTION WIDTH 15.7 % (11.7-14.4)
[2020-05-09 06:24] LABS: ALANINE AMINOTRANSFERASE 246 IU/L (0-55); ALBUMIN 3.1 g/dL (3.5-5.0); ALBUMIN/GLOBULIN RATIO 1.1 (0.8-2.0); ALKALINE PHOSPHATASE 206 IU/L (40-150); ANION GAP 14.1 mmol/L (8-16); BLOOD UREA NITROGEN 8 mg/dL (7-26); BUN/CREATININE RATIO 11 (6-25); CALCIUM 8.8 mg/dL (8.4-10.2); CARBON DIOXIDE 24 mmol/L (22-29); CHLORIDE 106 mmol/L (98-107); CREATININE, SERUM 0.74 mg/dL (0.57-1.11); EST GLOMERULAR FILTRATION RATE > 60 ML/MIN (60-); GLUCOSE 106 mg/dL (74-118); POTASSIUM 3.1 mmol/L (3.5-5.1); SODIUM 141 mmol/L (136-145)
[2020-05-09] MEDS: PANTOPRAZOLE SOD 40 MG TABEC PO SCH (07:30)
[2020-05-09] MEDS: FERROUS SULFATE 325 MG TAB PO SCH (09:00)
[2020-05-09] MEDS: GABAPENTIN 100 MG CAP PO SCH (09:00)
[2020-05-09] MEDS: ASPIRIN 81 MG CHEW TAB PO SCH (09:00)
[2020-05-09] MEDS: LEVOTHYROXINE SODIUM 50 MCG TAB PO SCH (09:00)
[2020-05-09] MEDS: BIOTIN 5 MG PO SCH (09:00)
[2020-05-09] MEDS: ASCORBIC ACID 500 MG TAB PO SCH ×2 (09:00→17:00)
[2020-05-09] MEDS ORDERED: CLOPIDOGREL BISULFATE 75 MG TAB PO SCH (09:00)
[2020-05-09] MEDS: CLOPIDOGREL BISULFATE 75 MG TAB PO SCH (09:00)
[2020-05-09] MEDS: FAMOTIDINE 20 MG/2 ML VIAL IV SCH (09:03)
[2020-05-09] MEDS ORDERED: MAGNESIUM OXIDE 400 MG TAB PO NR ×2 (11:15→17:30)
[2020-05-09] MEDS ORDERED: POTASSIUM CHLORIDE 20 MEQ TAB CR PO NR (12:00)
[2020-05-10 00:09] VITALS: BP 134/64
[2020-05-10] MEDS ORDERED: POTASSIUM CHLORIDE 20 MEQ TAB CR PO NR (01:34)
[2020-05-10 04:00] VITALS: BP 158/72
--- NOTE | 2020-05-10 06:31 | NUR ---
Met with Andrew FERRARI for Dr. Quinones. He plans to DC pt home today, pending her lab results. He kept her for elevated LFTs.
[2020-05-10 07:26] LABS: BASOPHILS % 0.6 % (0.0-1.0); EOSINOPHILS % 0.6 % (0.0-6.0); HEMATOCRIT 32.2 % (34.2-44.1); HEMOGLOBIN 10.3 g/dL (12.0-16.0); LYMPHOCYTES # (AUTO) 0.7 (1.0-3.2); LYMPHOCYTES % 19.9 % (18.0-39.1); MEAN CORPUSCULAR HEMOGLOBIN 28.7 pg (28-32); MEAN CORPUSCULAR VOLUME 89.7 fL (81-99); MONOCYTES # (AUTO) 0.4 (0.2-0.8); MONOCYTES % 10.2 % (4.4-11.3); NEUTROPHILS # (AUTO) 2.5 (2.1-6.9); NEUTROPHILS % 68.4 % (38.7-80.0); RED BLOOD COUNT 3.59 x10e6/uL (3.6-5.1); RED CELL DISTRIBUTION WIDTH 15.5 % (11.7-14.4)
[2020-05-10] MEDS: PANTOPRAZOLE SOD 40 MG TABEC PO SCH (07:30)
[2020-05-10 07:31] LABS: PLATELET COUNT 125 x10e3/uL (140-360)
[2020-05-10 07:45] LABS: ALANINE AMINOTRANSFERASE 197 IU/L (0-55); ALBUMIN 3.1 g/dL (3.5-5.0); ALKALINE PHOSPHATASE 305 IU/L (40-150); ANION GAP 13.7 mmol/L (8-16); BLOOD UREA NITROGEN 7 mg/dL (7-26); BUN/CREATININE RATIO 10 (6-25); CALCIUM 9.2 mg/dL (8.4-10.2); CARBON DIOXIDE 24 mmol/L (22-29); CHLORIDE 106 mmol/L (98-107); EST GLOMERULAR FILTRATION RATE > 60 ML/MIN (60-); GLUCOSE 107 mg/dL (74-118); POTASSIUM 3.7 mmol/L (3.5-5.1); SODIUM 140 mmol/L (136-145)
[2020-05-10 08:08] LABS: MAGNESIUM 1.9 MG/DL (1.3-2.1); PHOSPHORUS 2.2 MG/DL (2.3-4.7)
[2020-05-10 08:12] VITALS: BP 168/65
[2020-05-10 08:40] VITALS: BP 168/65
[2020-05-10] MEDS: BIOTIN 5 MG PO SCH (09:00)
[2020-05-10] MEDS: GABAPENTIN 100 MG CAP PO SCH (09:00)
[2020-05-10] MEDS: LEVOTHYROXINE SODIUM 50 MCG TAB PO SCH (09:00)
[2020-05-10] MEDS: FERROUS SULFATE 325 MG TAB PO SCH (09:00)
[2020-05-10] MEDS: CARVEDILOL 12.5 MG TAB PO SCH (09:00)
[2020-05-10] MEDS: ASCORBIC ACID 500 MG TAB PO SCH (09:00)
[2020-05-10] MEDS: ASPIRIN 81 MG CHEW TAB PO SCH (09:00)
[2020-05-10] MEDS: CLOPIDOGREL BISULFATE 75 MG TAB PO SCH (09:00)
[2020-05-10 09:19] VITALS: BP 168/65
[2020-05-10] MEDS ORDERED: PLAVIX75 MG PO (09:26)
[2020-05-10] MEDS ORDERED: NITROSTAT0.4 MG SL (09:26)
--- NOTE | 2020-05-11 04:55 | Discharge Summary ---
PRIMARY CARE PHYSICIAN: Julio Anand MD. CONSULTING PHYSICIAN: Giovany Patterson MD. CHIEF COMPLAINT: Epigastric pain and nausea. HISTORY OF PRESENT ILLNESS: The patient is a 74-year-old female with pain in the left breast and epigastric pain rated 8/10, waking her up at 5 o'clock in the morning. On 05/07/2020, she took an AcipHex and Pepto-Bismol thinking it was her Concepcion's esophagus without relief. The GI cocktail that she received in the emergency room was ineffective. Her pain radiated from the center of the chest under the left breast and also to the back. PAST MEDICAL HISTORY: ID in 2016, hypertension, hyperlipidemia, atrial fibrillation, Concepcion's esophagus, hypothyroidism, neuropathy, arthritis of the hands. PAST SURGICAL HISTORY: Tonsillectomy and adenoidectomy, PCI, back surgery, bladder suspension x3, heart catheterization with stents, left cataract removal. FAMILY HISTORY: Mother was age 40 when she of congestive heart failure, sister had pancreatic cancer and has also . Sister from kidney failure. SOCIAL HISTORY: Denies tobacco or illicit drugs. Drinks wine occasionally. She lives with her . She retired as a chiropractor office clerk in 2006. No cane or walker. ALLERGIES: SULFA. ADMITTING DIAGNOSES: 1. Chest pain, rule out myocardial infarction. 2. Epigastric pain with nausea. 3. Controlled hypertension. 4. Coronary artery disease with cardiac stents in situ, history of myocardial infarction in 2016. 5. Hyperlipidemia. 6. Hypothyroidism. DISCHARGE DIAGNOSES: 1. Resolved chest pain, coronary artery disease, status post PCI with stent placed distal LAD circumflex on 05/08/[address] Patterson. 2. Elevated T-bilirubin/transaminitis. 3. Hyperlipidemia. 4. Acute hypomagnesemia, resolved. 5. Acute hypokalemia, resolved. 6. Thrombocytopenia. 7. Hypothyroidism. On admission, WBC 7.87, hemoglobin 11.6, BUN 12, creatinine 0.82, estimated GFR greater than 60, calcium 10.1, total bilirubin 1.1, AST 97, ALT 60, alkaline phosphatase 144. Creatine kinase 85, CK-MB 1.3, troponin I 0.027. Coronavirus by PCR not detected. Chest x-ray had shown no focal pneumonia or pulmonary edema. Subsequent cardiac enzymes, creatine kinase 73 then 50, CK-MB 0.9 then 0.4, troponin I 0.015 and 0.014. B-type natriuretic peptide 83.5, triglyceride 61, cholesterol 95, LDL 41, HDL 42. During her stay, potassium 3.1 on 05/09, magnesium 1.7 on 05/08. It was noted after her stent placement that her liver enzymes were elevated with total bilirubin 2.8, AST 173, ALT 246, and alkaline phosphatase 206, although patient preferred to be discharged home. She was kept overnight to re-evaluate liver enzymes in the morning. Today, the day of discharge, 05/10, total bilirubin 1.7, AST 121, ALT 197, alkaline phosphatase 305, phosphorus 2.2, magnesium 1.9, potassium 3.7, BUN 7, creatinine 0.7, estimated GFR greater than 60. WBC 3.62, hemoglobin 10.3, hematocrit 32.2, platelets 125. The patient has been advised to continue her cardiac diet. Activity as tolerated. Follow up with PCP, Dr. Julio Anand in 1-[address] Estrada with Gastroenterology on outpatient basis and states that she will call his office on Monday and move her appointment up to us sooner date and will try to see him as soon as possible to follow up on the elevated liver enzymes. She denies any right upper quadrant abdominal pain. Denies any difficulty eating. No nausea, no vomiting. Thus, I doubt any gallbladder involvement. Her T bilirubin, AST and ALT have improved from yesterday. The patient feels fine. Her alkaline phosphatase did go up from 206 to 305. The patient and her do understand the importance of following up with Gastroenterology. Follow up with Dr. Patterson as directed. We will send her home with a prescription for Nitrostat tablets as well as Plavix 75 mg p.o. daily. Continue her home medications except hold her statin. She understand she needs to discontinue the statin. Dictated by Andrew Alvares NP MD MALIK Ortega/MARCUSL /[id number]
== END 2020-05-10 10:39 | disposition home or self-care (01) ==
LOC: ER 07:55 → ERHOLD 09:15 → MED/SURG3 13:42 → MED/SURG 05-08 11:56
PROVIDERS: ADMIT Internal Medicine; ATTEND Internal Medicine
DX: I25.110 Atherosclerotic heart disease of native coronary artery with unstable angina pectoris (principal); R07.9 Chest pain, unspecified; I25.2 Old myocardial infarction; K22.70 Barrett's esophagus without dysplasia; I10 Essential (primary) hypertension; E03.9 Hypothyroidism, unspecified; Z88.2 Allergy status to sulfonamides; R10.13 Epigastric pain; Z95.5 Presence of coronary angioplasty implant and graft; E78.5 Hyperlipidemia, unspecified; Z11.59 Encounter for screening for other viral diseases
CPT/HCPCS: 93458; C9600; 36415; 71045; 80048; 80053; 80061; 82550; 82553; 82948; 83690; 83735; 83880; 84100; 84484; 85025; 85610; 85730; 93005; 93306; 99152; 99153; 99284; C1725; C1766; C1876; C1887; G0378; J0583; J0690; J2001; J2250; J2270; J2405; J3010; J7030; J7040; Q9967; U0002

== ENCOUNTER → 2021-03-25 | Day surgery (SDC) | payer MEDICARE, OTHER ==
[2021-03-23 08:18] LABS: BASOPHILS # (AUTO) 0.1 (0.0-0.1); BASOPHILS % 0.8 % (0.0-1.0); EOSINOPHILS % 0.5 % (0.0-6.0); HEMATOCRIT 35.6 % (34.2-44.1); HEMOGLOBIN 11.2 g/dL (12.0-16.0); LYMPHOCYTES # (AUTO) 1.4 (1.0-3.2); LYMPHOCYTES % 23.2 % (18.0-39.1); MEAN CORPUSCULAR HEMOGLOBIN 28.6 pg (28-32); MEAN CORPUSCULAR HGB CONC 31.5 g/dL (31-35); MEAN CORPUSCULAR VOLUME 90.8 fL (81-99); MONOCYTES # (AUTO) 0.6 (0.2-0.8); MONOCYTES % 9.5 % (4.4-11.3); NEUTROPHILS % 65.8 % (38.7-80.0); PLATELET COUNT 208 x10e3/uL (140-360); RED BLOOD COUNT 3.92 x10e6/uL (3.6-5.1); RED CELL DISTRIBUTION WIDTH 14.6 % (11.7-14.4)
[2021-03-23 08:43] LABS: INR 0.89; PROTHROMBIN TIME 12.6 seconds (11.9-14.5)
[2021-03-23 08:46] LABS: ALANINE AMINOTRANSFERASE 19 IU/L (0-55); ALBUMIN/GLOBULIN RATIO 1.2 (0.8-2.0); ALKALINE PHOSPHATASE 82 IU/L (40-150); ANION GAP 12.8 mmol/L (8-16); BLOOD UREA NITROGEN 15 mg/dL (7-26); BUN/CREATININE RATIO 17 (6-25); CALCIUM 9.3 mg/dL (8.4-10.2); CARBON DIOXIDE 32 mmol/L (22-29); CHLORIDE 100 mmol/L (98-107); CREATININE, SERUM 0.87 mg/dL (0.57-1.11); EST GLOMERULAR FILTRATION RATE > 60 ML/MIN (60-); GLUCOSE 84 mg/dL (74-118); POTASSIUM 3.8 mmol/L (3.5-5.1); SODIUM 141 mmol/L (136-145)
[~2021-03-25] MED LIST changes: -ACIPHEX20 MG; +ACIPHEX20 MG PO; +AMLODIPINE BESYL5 MG PO; +ATORVASTATIN CA20 MG PO; +BIOTIN5 M1 PO; +BUPIVACAINE HCL 0.5% INJ 30 ML VIAL INJ ONE; +CARVEDILOL12.5 MG PO; +CEFAZOLIN SOD 1 GM/NS 50ML 50 ML IV ONE; +DEXAMETHASONE SOD PHOS INJ 4 MG/ML VIAL ONE; +IRON PO; +KETOROLAC TROMETHAMINE 30 MG/ML VIAL ONE; +LEVOTHYROXINE50 MCG PO; +LIDOCAINE HCL 2% LOCAL INJ 5 ML SDV VIAL INJ ONE; +LISINOPRIL-HCT1 EAC2 PO; +MUPIROCIN 2% OINT 22 GM TUBE ONE; +NITROSTAT0.4 MG SL; +ONDANSETRON HCL INJ 2MG/ML 2ML 2 MG/ML VIAL ONE; +PLAVIX75 MG PO; +POVIDONE IODINE 0.05% 0.05 % ML PO ONE; +PROPOFOL IV EMULSION 10 MG/ML 20 ML VIAL ONE; +SEVOFLURANE INHAL SOLN 250 ML PEN BTL ONE; +SILICA PO; +TYLENOL # 31 EA PO; +VITAMIN C500 M6 PO
[2021-03-25 08:55] VITALS: BP 149/67
== END | disposition home or self-care (01) ==
LOC: OR 05:45
PROVIDERS: ATTEND Plastic Surgery
DX: M67.431 Ganglion, right wrist (principal); I10 Essential (primary) hypertension; E03.9 Hypothyroidism, unspecified; I25.10 Atherosclerotic heart disease of native coronary artery without angina pectoris; I25.2 Old myocardial infarction; K21.9 Gastro-esophageal reflux disease without esophagitis; Z88.2 Allergy status to sulfonamides; Z01.810 Encounter for preprocedural cardiovascular examination; Z01.812 Encounter for preprocedural laboratory examination; Z01.818 Encounter for other preprocedural examination; Z20.822 Contact with and (suspected) exposure to COVID-19; Z79.02 Long term (current) use of antithrombotics/antiplatelets; Z79.82 Long term (current) use of aspirin; Z95.5 Presence of coronary angioplasty implant and graft
CPT/HCPCS: 25111; 36415; 71046; 80053; 85025; 85610; 85730; 88304; 93005; J0690; J1100; J1885; J2001; J2405; J2704; U0002

== ENCOUNTER → 2021-10-14 | Day surgery (SDC) | payer MEDICARE, OTHER ==
[2021-10-12 08:41] LABS: BASOPHILS # (AUTO) 0.1 (0.0-0.1); BASOPHILS % 0.9 % (0.0-1.0); EOSINOPHILS % 0.2 % (0.0-6.0); HEMATOCRIT 35.5 % (34.2-44.1); HEMOGLOBIN 11.2 g/dL (12.0-16.0); LYMPHOCYTES # (AUTO) 1.4 (1.0-3.2); LYMPHOCYTES % 25.4 % (18.0-39.1); MEAN CORPUSCULAR HEMOGLOBIN 28.9 pg (28-32); MEAN CORPUSCULAR HGB CONC 31.5 g/dL (31-35); MEAN CORPUSCULAR VOLUME 91.5 fL (81-99); MONOCYTES # (AUTO) 0.6 (0.2-0.8); MONOCYTES % 10.4 % (4.4-11.3); NEUTROPHILS # (AUTO) 3.6 (2.1-6.9); NEUTROPHILS % 62.9 % (38.7-80.0); PLATELET COUNT 187 x10e3/uL (140-360); RED BLOOD COUNT 3.88 x10e6/uL (3.6-5.1)
[2021-10-12 08:56] LABS: ANION GAP 12.7 mmol/L (8-16); CALCIUM 9.9 mg/dL (8.4-10.2); CREATININE, SERUM 1.07 mg/dL (0.57-1.11); POTASSIUM 3.7 mmol/L (3.5-5.1)
[~2021-10-14] MED LIST changes: +ACETAMINOPHEN-1 EAC4 PO; +BUPIVACAINE 0.25% 30ML SDV ONE; -CEFAZOLIN SOD 1 GM/NS 50ML 50 ML IV ONE; +CRESTOR10 MG PO; +DEXAMETHASONE SOD PHOS INJ 4 MG/ML SDV ONE; -DEXAMETHASONE SOD PHOS INJ 4 MG/ML VIAL ONE; +EPHEDRINE SULFATE INJ 50 MG/ML VIAL ONE; +FENTANYL CITRATE/PF 100MCG/2 ML INJ ONE; -KETOROLAC TROMETHAMINE 30 MG/ML VIAL ONE; +LISINOPRIL-HCT1 EACH PO; +PROTONIX20 MG PO
[2021-10-14 08:40] VITALS: BP 141/55
== END | disposition home or self-care (01) ==
LOC: OR 06:29
PROVIDERS: ATTEND Plastic Surgery
DX: G56.01 Carpal tunnel syndrome, right upper limb (principal); M65.831 Other synovitis and tenosynovitis, right forearm; I10 Essential (primary) hypertension; E03.9 Hypothyroidism, unspecified; K21.9 Gastro-esophageal reflux disease without esophagitis; I25.10 Atherosclerotic heart disease of native coronary artery without angina pectoris; Z88.2 Allergy status to sulfonamides; Z01.810 Encounter for preprocedural cardiovascular examination; Z01.812 Encounter for preprocedural laboratory examination; Z01.818 Encounter for other preprocedural examination; Z20.822 Contact with and (suspected) exposure to COVID-19; Z79.02 Long term (current) use of antithrombotics/antiplatelets; Z79.82 Long term (current) use of aspirin; Z79.899 Other long term (current) drug therapy; Z95.5 Presence of coronary angioplasty implant and graft
CPT/HCPCS: 25115; 36415; 71046; 80048; 85025; 93005; J0690; J1100; J2001; J2405; J2704; J3010; U0002